=== PATIENT | male | born 1945 | race Caucasian/White ===

== ENCOUNTER 2019-07-27 08:13 | Outpatient (CLI) | payer MEDICARE, SELFPAY ==
[2019-07-27 09:05] LABS: Basophils Percent Auto 0.5 % (0.2-1.2); Eosinophils Absolute Auto 0.3 K/mm3 (0-0.3); Eosinophils Percent Auto 5.4 % (0-4.4); Hematocrit 42.6 % (42.0-52.0); Hemoglobin 14.3 g/dL (14.0-18.0); Immature Granulocyte Absolute 0.01 K/mm3 (0.00-0.031); Immature Granulocyte Percent A 0.2 % (0-0.5); Lymphocytes Absolute Auto 1.27 K/mm3 (0.9-3.2); Mean Corpuscular HGB Conc 33.6 g/dl (32-36); Mean Corpuscular Volume 92.2 fl (80-100); Mean Platelet Volume 10.9 fl (7.4-10.4); Monocytes Absolute Auto 0.6 K/mm3 (0.1-0.6); Monocytes Percent Auto 10.5 % (2.6-8.5); Neutrophils Absolute Auto 3.3 K/mm3 (1.3-6.7); Neutrophils Percent Auto 60.4 % (45.5-73.1); Platelet Count Result 154 k/mm3 (150-375); Red Blood Count 4.62 M/mm3 (4.6-6.20); Red Cell Distribution Width 12.5 % (11.5-14.5); White Blood Count 5.5 K/mm3 (4.5-10.0)
[2019-07-27 09:07] LABS: Cholesterol 212 mg/dL (0-200); HDL Direct 25 mg/dL; Triglycerides 288 mg/dL (<150)
[2019-07-27 09:20] LABS: LDL Cholesterol Direct 123 mg/dL
[2019-07-27 10:27] LABS: Folic Acid > 20.0 ng/mL (2.76->20)
== END 2019-07-27 08:14 | disposition home or self-care (01) ==
PROVIDERS: PCP Internal Medicine; Visit Provider Internal Medicine
DX: R53.83 Other fatigue (principal); E78.5 Hyperlipidemia, unspecified
CPT/HCPCS: 36415; 80061; 82607; 82746; 84443; 85025; 85027

== ENCOUNTER 2019-08-05 06:57 | Outpatient (CLI) | payer MEDICARE, SELFPAY ==
--- NOTE | ~2019-08-05 | NM_ITS ---
EXAMINATION: NM stress w perf spect multi DATE: 08/05/2019 09:42 INDICATION: Chest pain on exertion TECHNIQUE: Rest images were obtained following intravenous administration of 11.3 mCi Tc99m tetrofosm in ([employer]). The patient performed an exercise activity. At peak exercise, 33.7 mCi Tc99m tetrofosmi n ([employer]) was administered intravenously, and stress images were obtained. Data was reconstructed i nto short axis and horizontal and vertical long axis SPECT images. Gated SPECT images were also obtai dasha. COMPARISON: None. FINDINGS: There is normal left ventricular perfusion without definite evidence of reversible or fixed perfusion abnormality to suggest ischemia or infarction. There is normal left ventricular chamber size, wall motion and ejection fraction. Left ventricular ejection fraction measures >70%. IMPRESSION: 1. Normal myocardial perfusion at rest and during stress. 2. Left ventricular ejection fraction measuring >70%. Reviewed, dictated and finalized at location A.
--- NOTE | 2019-08-05 07:07 | EST_ITS ---
Patient Info Name: Pankaj Cornelius Age: 74 years : 1945 Gender: Male Ht: 70 in Wt: 188 lbs BSA: 2.07 m2 Exam Date: 08/05/2019 8:30 AM Exam Location: [facility] Stress Patient Status: Outpatient Admit Date: 08/05/2019 Staff Ordering Physician: Archie Ervin DO Attending Provider: Archie Ervin DO Exercise Technologist: Shraddha Doll RDCS Nurse: April Jacques, ANP, ACNP-BC Exam Type: CA stress test treadmill w NM Study Info Indications R07.9 - Chest pain, unspecified A pharmacological stress test was performed. Summary 1. Please correlate with nuclear medicine images, reported separately. 2. Normal ST segment response to stress. 3. Below average exercise capacity for age. 4. Patient had mild chest heaviness throughout the examination that did not worsen with exercise. He did have shortness breath with exertion also. Protocol: [facility] Stress ECG Details Stage: REST Duration (min): 6 min : 14 sec Speed (mph): 0.0 Grade (%): 0 HR (bpm): 58 SBP (mmHg): 135 DBP (mmHg): 71 METS: --- Stage: REST Duration (min): 21 min : 57 sec Speed (mph): 0.0 Grade (%): 0 HR (bpm): 64 SBP (mmHg): 135 DBP (mmHg): 71 METS: --- Stage: STAGE 1 Duration (min): 1 min : 0 sec Speed (mph): 1.7 Grade (%): 10 HR (bpm): 101 SBP (mmHg): 135 DBP (mmHg): 71 METS: --- Stage: STAGE 1 Duration (min): 2 min : 0 sec Speed (mph): 1.7 Grade (%): 10 HR (bpm): 108 SBP (mmHg): 135 DBP (mmHg): 71 METS: --- Stage: STAGE 1 Duration (min): 3 min : 0 sec Speed (mph): 1.7 Grade (%): 10 HR (bpm): 109 SBP (mmHg): 181 DBP (mmHg): 81 METS: --- Stage: STAGE 2 Duration (min): 1 min : 0 sec Speed (mph): 2.5 Grade (%): 12 HR (bpm): 131 SBP (mmHg): 181 DBP (mmHg): 81 METS: --- Stage: STAGE 2 Duration (min): 1 min : 26 sec Speed (mph): 2.5 Grade (%): 12 HR (bpm): 134 SBP (mmHg): 181 DBP (mmHg): 81 METS: --- Stage: RECOVERY Duration (min): 0 min : 33 sec Speed (mph): 0.0 Grade (%): 0 HR (bpm): 125 SBP (mmHg): 186 DBP (mmHg): 77 METS: --- Stage: RECOVERY Duration (min): 1 min : 33 sec Speed (mph): 0.0 Grade (%): 0 HR (bpm): 88 SBP (mmHg): 196 DBP (mmHg): 71 METS: --- Stage: RECOVERY Duration (min): 2 min : 33 sec Speed (mph): 0.0 Grade (%): 0 HR (bpm): 74 SBP (mmHg): 196 DBP (mmHg): 71 METS: --- Stage: RECOVERY Duration (min): 3 min : 33 sec Speed (mph): 0.0 Grade (%): 0 HR (bpm): 76 SBP (mmHg): 182 DBP (mmHg): 73 METS: --- Stage: RECOVERY Duration (min): 4 min : 33 sec Speed (mph): 0.0 Grade (%): 0 HR (bpm): 71 SBP (mmHg): 182 DBP (mmHg): 73 METS: --- Stage: RECOVERY Duration (min): 5 min : 33 sec Speed (mph): 0.0 Grade (%):
== END 2019-08-05 06:58 | disposition home or self-care (01) ==
LOC: ANHCARD 07:02
PROVIDERS: PCP Internal Medicine; Visit Provider Internal Medicine
DX: R07.9 Chest pain, unspecified (principal)
CPT/HCPCS: 78452; 93017; A9502

== ENCOUNTER 2019-09-21 00:16 | Outpatient (CLI) | payer MEDICARE, SELFPAY ==
[2019-09-22 14:41] LABS: SARS-CoV-2 RNA PCR Negative
== END 2019-09-21 00:17 | disposition home or self-care (01) ==
LOC: ANHCOVIDDT 00:17
PROVIDERS: PCP Internal Medicine; Visit Provider Internal Medicine Cardiovascular Disease
DX: Z01.812 Encounter for preprocedural laboratory examination (principal); Z11.59 Encounter for screening for other viral diseases
CPT/HCPCS: 87635; C9803; U0003

== ENCOUNTER 2019-09-23 05:38 | Day surgery (SDC) | payer MEDICARE, SELFPAY ==
[2019-09-22 15:58] VITALS: BMI 27.8
[2019-09-23] VITALS (19 sets, daily range): BP systolic 120–151; BP diastolic 62–86; PULSE 55–77; RESP 13–21; TEMP 36.6–36.7; O2SAT 93–97
[2019-09-23 10:36] LABS: Basophils Percent Auto 0.4 % (0.2-1.2); Eosinophils Absolute Auto 0.2 K/mm3 (0-0.3); Eosinophils Percent Auto 3.8 % (0-4.4); Hematocrit 43.8 % (42.0-52.0); Hemoglobin 14.8 g/dL (14.0-18.0); Immature Granulocyte Absolute 0.01 K/mm3 (0.00-0.031); Immature Granulocyte Percent A 0.2 % (0-0.5); Lymphocytes Absolute Auto 1.17 K/mm3 (0.9-3.2); Lymphocytes Percent Auto 20.9 % (18.3-44.2); Mean Corpuscular HGB Conc 33.8 g/dl (32-36); Mean Corpuscular Volume 91.6 fl (80-100); Monocytes Absolute Auto 0.4 K/mm3 (0.1-0.6); Monocytes Percent Auto 7.3 % (2.6-8.5); Neutrophils Absolute Auto 3.8 K/mm3 (1.3-6.7); Neutrophils Percent Auto 67.4 % (45.5-73.1); Platelet Count Result 160 k/mm3 (150-375); Red Blood Count 4.78 M/mm3 (4.6-6.20); Red Cell Distribution Width 12.5 % (11.5-14.5); White Blood Count 5.6 K/mm3 (4.5-10.0)
[2019-09-23 10:46] LABS: Anion Gap 10.6 mmol/L (7-16); Blood Urea Nitrogen 19 mg/dL (9-20); Calcium 9.5 mg/dL (8.4-10.2); Carbon Dioxide 28 mmol/L (22-30); Chloride 104 mmol/L (98-107); Estimated CRCL calculation 47 ml/min; Estimated Glomerular Filt Rate 59; Glucose 107 mg/dL (75-110); Potassium 4.6 mmol/L (3.4-5.0); Sodium 138 mmol/L (137-145)
[2019-09-23 10:50] LABS: INR 1.1; Prothrombin Time 13.5 Seconds (11.1-14.7)
[2019-09-23] MEDS: methylPREDNISolone SOD SUCC 125 MG VIAL 60 MG IV PUSH (11:18)
--- NOTE | 2019-09-23 11:31 | WPDHPUPDATE1 ---
History and Physical Update Update Date/Time: 09/23/19 11:31 History and Physical has been reviewed, including an updated exam of the patient. There are NO changes in the patient's condition. Risks, benefits, and alternatives have been discussed and questions answered. Patient agrees to proceed with procedure.
--- NOTE | 2019-09-23 11:31 | WPDMODSED ---
Moderate Sedation Note-Pt Data Patient Data Diagnosis: Unstable angina Present Complaint: none Procedure to be performed/Plan: left heart catheterization with selective left and right coronary angiography with left ventriculography and hemodynamics and possible percutaneous intervention and stent implantation Allergies Allergy/AdvReac Type Severity Reaction Status Date / Time Penicillins Allergy Mild Rash Verified 08/02/19 13:47 Shrimp Allergy Severe CHOKING Uncoded 08/02/19 13:47 FEELING IN THROAT NUTS Allergy Intermediate CHOKING Uncoded 08/02/19 13:47 FEELING IN THROAT Home Medications Medication Instructions Recorded Confirmed Type psyllium husk 3.4 gram/5.4 gram 1 tbsp PO DAILY 02/02/19 09/22/19 History oral powder aspirin 81 mg PO DAILY 09/22/19 09/22/19 History metoprolol tartrate 25 mg PO BID 09/22/19 09/22/19 History multivitamin 1 cap PO DAILY 09/22/19 09/22/19 History nitroglycerin [Nitrostat] 0.4 mg SUBLINGUAL Q5M PRN 09/22/19 09/22/19 History omeprazole 40 mg PO DAILY 09/22/19 09/22/19 History Current Medications: Active Medications Sodium Chloride (Normal Saline Iv) 500 mls @ 100 mls/hr IV CONT .Q5H SABINA Sedation/Anesthesia: No previous sedation/anesthesia problems (including family history). [facility] Family History Family History Sibling Patient's brother is in good health Patient's brother is Social History Social History Smoking status: Former smoker Tobacco type: cigarettes Second hand tobacco smoke exposure: Yes Smoking end date: 02/24/79 Alcohol intake: current Drinks per week: 1 Substance use: never Substance use type: does not use Last use: 1983 Living arrangements: with family Gender identity (if verbalized by the patient): Male Spiritual care concerns: No Mod Sed Physical Exam Physical Exam Pre Procedural Exam: Normal: Appearance, Eyes, Ears, Nose, Neck ( supple, normal range of motion), Throat ( posterior hypopharynx clear, nonerythematous), Airway ( normal anatomy, no obstruction), Lungs ( clear to auscultation bilaterally), Heart Size, Heart Rate, Heart Rhythm, Neuro Exam, Abdomen, Liver, Kidneys, Extremities and Skin Hours since solid foods: 12 Hours since liquid intake: 12 Internal Medicine - PN: Obj Da Vital Signs Vital Signs: Vital Signs - 24 hr 09/23/19 10:15 Temperature 36.6 C Pulse Rate 55 L Respiratory Rate 16 Blood Pressure 142/86 H Pulse Oximetry 97 Meds/Results Medications: Active Medications Generic Name Dose Route Start Last Admin Trade Name Freq PRN Reason Stop Dose Admin Sodium Chloride 500 mls @ 100 mls/hr 09/23/19 06:20 Normal Saline Iv IV CONT .Q5H SABINA Labs CBC & Chem 7: 09/23/19 10:15 09/23/19 10:15 Labs: Laboratory Results - last 24 hr 09/23/19 09/23/19 09/23/19 10:15 10:15 10:15 WBC 5.6 RBC 4.78 Hgb 14.8 Hct 43.8 MCV 91.6 MCH 31.0 MCHC 33.8 RDW 12.5 Plt Count 160 MPV 11.0 H Immature Gran % (Auto) 0.2 Neut % (Auto) 67.4 Lymph % (Auto) 20.9 Randall % (Auto) 7.3 Eos % (Auto) 3.8 Baso % (Auto) 0.4 Lymph # (Auto) 1.17 Randall # (Auto) 0.4 Eos # (Auto) 0.2 Baso # (Auto) 0.0 Abs Immat Gran (auto) 0.01 Absolute Neuts (auto) 3.8 Absolute Nucleated RBC 0.0 Nucleated RBC % 0.0 PT 13.5 INR 1.1 Sodium 138 Potassium 4.6 Chloride 104 Carbon Dioxide 28 Anion Gap 10.6 BUN 19 Creatinine 1.20 Estim Creat Clear Calc 47 Estimated GFR 59 Glucose 107 Calcium 9.5 ASA Classification/Sedation ASA Classification/Sedation ASA Class: III Emergent: No Risks: Risks, benefits and alternatives explained and patient/family accepted plan for sedation. Patient re-evaluated immediately prior to sedation.
--- NOTE | 2019-09-23 12:22 | PM.PROC ---
Procedure Note - Detailed Date of procedure: 09/23/19 Pre-op diagnosis: Chest pain with exertion, SOB, Fatigue Unstable angina Post-op diagnosis: other Procedure performed: Left heart catheterization with selective left and right coronary angiography with left ventriculography and hemodynamics and distal aortogram Description of procedure: BRIEF HISTORY OF PRESENT ILLNESS: Patient is a pleasant 74 yo WM with a past medical history of dyslipidemia and h/o tobacco abuse who presented with classic exertional anginal symptoms with chest pressure, fatigue, KHOURY, decreased activity tolerance who underwent TM nuclear stress test with normal LV function and no ischemia but with poor exercise tolerance on treadmill and stress related angina on treadmill referred for coronary angiogram to delineate his coronary anatomy. PROCEDURES PERFORMED: 1. Left heart catheterization 2. Selective left and right coronary angiography 3. Left ventriculography and hemodynamics 4. Moderate/conscious sedation administration 5. Distal aorta angiography CATHETERS UTILIZED: Left coronary system- 5 Nicaraguan JL4 catheter Right coronary system- 5 Nicaraguan JR4 catheter Left ventriculography and hemodynamics- 5 Nicaraguan angled pigtail catheter PROCEDURE IN DETAIL: After verbal and written informed consent was obtained the patient, risks, benefits, and alternatives explained in detail the patient agreed to proceed with the plan of care as outlined above. The patient was subsequently brought to the cardiac catheterization lab, placed on the cardiac catheterization table, and prepped and draped in the usual sterile fashion. Utilizing approximately 17cc of 1% subcutaneous Lidocaine, the right groin was then locally anesthetized. Utilizing the modified Seldinger technique, a 5 Nicaraguan arterial vascular access sheath was inserted in the right common femoral artery easily and without complications. upon advancement of the 0.035 J-tipped guidewire some initial resistance was met. At this point, no further attempts were made to advance until angiography was performed distal to the resistance point. This revealed patency of the R proximal common iliac artery but with a centrally located, eccentric calcified stenosis estimated at approximately 30-40%. As such, using a 260cm Wholey wire this was able to easily pass the stenosis and advance over the wire angiographic catheters. LAter, all catheter exchanges were performed over a 260cm 0.035 J-tipped exchange guidewire. Subsequently, through this access, coronary angiography was subsequently obtained in multiple standard re-projections. Following this, a 5 Nicaraguan angled pigtail catheter was advanced retrograde across aortic valve into the cavity of the left ventricle. Left ventriculography was performed and pullback across aortic valve was subsequently recorded. The vascular access sheath and angiographic catheters were flushed before and after catheter exchanges. after coronary angiography was completed, using the 5 Nicaraguan angled pigtail catheter positioned in the distal aorta, cineangiography was performed and recorded. At the conclusion of the diagnostic portion of the procedure, all angiographic guidewires and catheters were removed and the 5 Nicaraguan arterial vascular access sheath was then pulled and satisfactory hemostasis was achieved using manual compression. There no complications noted at the conclusion of the diagnostic portion of the study. MODERATE SEDATION/ANESTHESIA ADMINISTRATION: Patient reports no prior problems with sedation/anesthesia. Please see pre-sedation noted for physical examination documentation. Sedation start time was 1138 and end time was 1209 for a total intra-service/procedure face-face time of 31 minutes. A total of 1 mg intravenous Versed and a total of 50 mcg intravenous Fentanyl, and 50 mg intravenous Benadry lwas administered for moderate sedation. Moderate sedation was administered by qualified/certified observer Chester Pleitez
== END 2019-09-23 17:52 | disposition home or self-care (01) ==
PROVIDERS: PCP Internal Medicine; Visit Provider Internal Medicine Cardiovascular Disease
PROC: 4A023N7 Measurement of Cardiac Sampling and Pressure, Left Heart, Percutaneous Approach (ICD-10-PCS; CPT 93452; principal; 2019-09-23 11:00)
DX: I25.10 Atherosclerotic heart disease of native coronary artery without angina pectoris (principal); R07.89 Other chest pain; R06.02 Shortness of breath; R53.83 Other fatigue; I71.4 Abdominal aortic aneurysm, without rupture; I77.89 Other specified disorders of arteries and arterioles; E78.5 Hyperlipidemia, unspecified; Z87.891 Personal history of nicotine dependence; Z79.82 Long term (current) use of aspirin
CPT/HCPCS: 36415; 80048; 85025; 85610; 87635; 93458; C1769; C1887; C1894; C9803; J0461; J1200; J1644; J2250; J2930; J3010; J7040; U0003

== ENCOUNTER 2019-10-01 13:01 | Outpatient (CLI) | payer MEDICARE, SELFPAY ==
--- NOTE | ~2019-10-01 | CT_ITS ---
EXAMINATION: CTA abd aorta runoff EXAM DATE: 10/01/2019 13:36 INDICATION: Saccular right common iliac aneurysm. TECHNIQUE: Spiral CTA abd aorta runoff was performed following intravenous injection of 150 mL Omnipa que 350. Axial, coronal and sagittal images were reviewed. Maximum intensity projection 3-D reconstr uctions of the arteries were created by the technologist on dedicated workstation. The dose-length product (DLP) for this examination was 1124.91 mGy-cm. The exposure was tailored according to patie nt size (auto mA exposure control), and iterative reconstruction (ASIR) was used as additional dose r eduction technique. There is no prior study for comparison. FINDINGS: Moderate scattered aortic arterial sclerosis. Distal abdominal aorta is mildly dilated at 2.7 cm. Just below the KRISTEN takeoff there is dissection flap abdominal aorta. Stenosis at the origin o f the right common iliac artery, best measuring about 4.5 mm in diameter at most stenotic region. Dis marvin to the stenotic segment the diameter of this vessel was 13 mm, slightly larger than the contralat eral side. There is no stenosis of femoral, popliteal arteries bilaterally, and there is three-vessel runoff to the ankle bilaterally. Incidental right-sided Higgins's cyst. The liver, spleen, adrenal glands and pancreas are unremarkable. Gallbladder is unremarkable. No bi liary obstruction. Portal and splenic veins are patent. Kidneys enhance symmetrically. There is no hydronephrosis. The prostate is unremarkable. The bladder is unremarkable. There is no retroperi toneal or pelvic lymphadenopathy. Small bilateral inguinal fat-containing hernias. The appendix is normal. The stomach and small bowel are unremarkable. There is expected amount of c olonic stool. There is moderate sigmoid predominant colonic diverticulosis. There is no adjacent inf lammatory change to suggest diverticulitis. No free intraperitoneal gas. The heart is normal in si ze. There are no pericardial or pleural effusions. The lung bases are unremarkable. There are no o steoblastic or osteolytic lesions identified. IMPRESSION: 1. Mildly dilated distal abdominal aorta with short flap dissection in this dilated segment. 2. Moderate stenosis right common iliac artery origin. 3. Three-vessel runoff to both legs. 4. Sigmoid predominant diverticulosis. 5. Small inguinal fat-containing hernias. 6. Right Higgins's cyst. Reviewed, dictated and finalized at location A. IMPRESSION: 1. Mildly dilated distal abdominal aorta with short flap dissection in this di lated segment. 2. Moderate stenosis right common iliac artery origin. 3. Three-vessel runoff to both legs. 4. Sigmoid predominant diverticulosis. 5. Small inguinal fat-containing hernias. 6. Right Higgins's cyst.
== END 2019-10-01 13:02 | disposition home or self-care (01) ==
PROVIDERS: PCP Internal Medicine; Visit Provider Internal Medicine Cardiovascular Disease
DX: I72.3 Aneurysm of iliac artery (principal); M71.21 Synovial cyst of popliteal space [Baker], right knee; K40.90 Unilateral inguinal hernia, without obstruction or gangrene, not specified as recurrent; K57.30 Diverticulosis of large intestine without perforation or abscess without bleeding
CPT/HCPCS: 75635; Q9967

== ENCOUNTER 2019-11-06 07:21 | Outpatient (CLI) | payer MEDICARE, SELFPAY ==
[2019-11-06 08:00] LABS: Alanine Aminotransferase 32 U/L (4-50); Albumin Level 4.3 g/dL (3.5-5.1); Alkaline Phosphatase 92 U/L (38-126); Anion Gap 7 mmol/L (8-16); Aspartate Amino Transferase 39 U/L (17-59); Bilirubin,Total 0.6 mg/dL (0.2-1.3); Blood Urea Nitrogen 17 mg/dL (9-20); Calcium 9.4 mg/dL (8.4-10.2); Carbon Dioxide 29 mmol/L (22-30); Chloride 103 mmol/L (98-107); Estimated Glomerular Filt Rate > 60; Glucose 107 mg/dL (75-110); Potassium 4.2 mmol/L (3.4-5.0); Sodium 139 mmol/L (137-145)
[2019-11-06 08:31] LABS: Prostate Specific Antigen 0.7 ng/mL (< OR = 4.0)
[2019-11-06 09:07] LABS: Folic Acid > 20.0 ng/mL (2.76->20)
== END 2019-11-06 07:22 | disposition home or self-care (01) ==
LOC: ANHLAB 07:24
PROVIDERS: PCP Internal Medicine; Visit Provider Internal Medicine
DX: R53.83 Other fatigue (principal); Z12.5 Encounter for screening for malignant neoplasm of prostate; R73.9 Hyperglycemia, unspecified
CPT/HCPCS: 36415; 80053; 82607; 82746; 84153; 84443; G0103

== ENCOUNTER 2020-01-17 08:38 | Outpatient (CLI) | payer MEDICARE, SELFPAY ==
--- NOTE | ~2020-01-17 | CT_ITS ---
EXAMINATION: CTA abdomen pelvis EXAM DATE: 01/17/2020 09:15 INDICATION: Dissection of aorta. TECHNIQUE: Spiral CT angiogram of the abdomen and pelvis was performed following intravenous injectio n of 100 mL Omnipaque 350. Axial, coronal and sagittal images were reviewed. Maximum intensity proje ction 3-D reconstructions of the abdominal aorta were created by the technologist on dedicated workst ation. The dose-length product (DLP) for this examination was 785.09 mGy-cm. The exposure was tailo red according to patient size (auto mA exposure control), and iterative reconstruction (ASIR) was use d as additional dose reduction technique. Comparison is made to prior examination from 10/01/2019. FINDINGS: Again there is short segment lower abdominal aortic dissection in its distal aspect extendi ng into the right common iliac artery. The lumen of the right common iliac artery at the bifurcation is 5 mm in diameter versus the normal-size contralateral side of 10 mm. There is a left liver lobe 1.8 cm cyst. The liver, spleen, adrenal glands and pancreas are otherwise unremarkable. Gallbladder is unremarkable. No biliary obstruction. Portal and splenic veins are pa tent. Kidneys enhance symmetrically. There is no hydronephrosis. There is a 2 cm exophytic left sayra al cyst. The prostate is unremarkable. The bladder is unremarkable. There is no retroperitoneal or pelvic lymphadenopathy. There is moderate scattered arteriosclerotic disease. The appendix is normal. The stomach and small bowel are unremarkable. There is moderate to severe si gmoid colonic diverticulosis. There is no adjacent inflammatory change to suggest diverticulitis. N o free intraperitoneal gas. The heart is normal in size. There are no pericardial or pleural effus ions. The lung bases are unremarkable. There are no osteoblastic or osteolytic lesions identified. IMPRESSION: 1. Stable short segment distal abdominal aortic, right common iliac arterial dissection. 2. Sigmoid diverticulosis. Reviewed, dictated and finalized at location B. [employer]AT[employer] IMPRESSION: 1. Stable short segment distal abdominal aortic, right common iliac arterial d issection. 2. Sigmoid diverticulosis.
[2020-01-17 09:10] LABS: Estimated Glomerular Filt Rate > 60
== END 2020-01-17 08:39 | disposition home or self-care (01) ==
PROVIDERS: PCP Internal Medicine
DX: I71.00 Dissection of unspecified site of aorta (principal); I77.1 Stricture of artery; K57.30 Diverticulosis of large intestine without perforation or abscess without bleeding
CPT/HCPCS: 74174; Q9967

== ENCOUNTER 2020-05-30 14:41 | Outpatient (CLI) | payer MEDICARE, SELFPAY ==
--- NOTE | ~2020-05-30 | XR_ITS ---
EXAMINATION: XR thoracic spine 2V DATE: 05/30/2020 14:58 INDICATION: Cervicalgia and upper back pain TECHNIQUE: Two views of the thoracic spine are obtained. COMPARISON: 06/05/2018 FINDINGS: There is no fracture, dislocation, or subluxation. The vertebral body heights are maintaine d. There is mild loss of intervertebral disc space height in the upper thoracic spine. IMPRESSION: 1. Mild thoracic spondylosis without acute findings. Reviewed, dictated and finalized at location A.
--- NOTE | ~2020-05-30 | XR_ITS ---
EXAMINATION: XR_CERV2-3V_CR EXAM DATE: 05/30/2020 14:59 INDICATION: Neck pain, no known recent injury. TECHNIQUE: Cervical spine frontal, lateral and open-mouth odontoid projections. There is no prior s tudy for comparison. FINDINGS: There is moderate disc disease C5-6 and 6-7, mild to moderate at C3-4 and mild at C2-3. Th e vertebral bodies are aligned in the AP dimension. The odontoid process is intact. The lateral mass es of C1 line up with C2. There are no acute fractures identified. Paraspinal soft tissue is unrema rkable. Overall moderate cervical arthropathy. Lung apices unremarkable. IMPRESSION: Moderate cervical spondylosis. Reviewed, dictated and finalized at location A.
== END 2020-05-30 14:42 | disposition home or self-care (01) ==
LOC: ANHIMG 14:44
PROVIDERS: PCP Internal Medicine; Visit Provider Internal Medicine
DX: M47.813 Spondylosis without myelopathy or radiculopathy, cervicothoracic region (principal)
CPT/HCPCS: 72040; 72070

== ENCOUNTER 2020-08-24 08:24 | Outpatient (CLI) | payer MEDICARE, SELFPAY ==
[2020-08-24 08:50] LABS: Basophils Percent Auto 0.4 % (0.2-1.2); Eosinophils Absolute Auto 0.2 K/mm3 (0-0.3); Eosinophils Percent Auto 3.4 % (0-4.4); Hematocrit 43.1 % (42.0-52.0); Hemoglobin 14.3 g/dL (14.0-18.0); Immature Granulocyte Absolute 0.01 K/mm3 (0.00-0.031); Immature Granulocyte Percent A 0.2 % (0-0.5); Lymphocytes Absolute Auto 1.03 K/mm3 (0.9-3.2); Lymphocytes Percent Auto 19.5 % (18.3-44.2); Mean Corpuscular HGB Conc 33.2 g/dl (32-36); Mean Corpuscular Hemoglobin 30.6 pg (26-34); Mean Corpuscular Volume 92.1 fl (80-100); Mean Platelet Volume 10.6 fl (7.4-10.4); Monocytes Absolute Auto 0.5 K/mm3 (0.1-0.6); Monocytes Percent Auto 9.1 % (2.6-8.5); Neutrophils Absolute Auto 3.6 K/mm3 (1.3-6.7); Neutrophils Percent Auto 67.4 % (45.5-73.1); Platelet Count Result 128 k/mm3 (150-375); Red Blood Count 4.68 M/mm3 (4.6-6.20); Red Cell Distribution Width 12.6 % (11.5-14.5); White Blood Count 5.3 K/mm3 (4.5-10.0)
[2020-08-24 09:30] LABS: Hemoglobin A1C 5.9 % (<5.7)
[2020-08-24 09:31] LABS: Alanine Aminotransferase 22 U/L (4-50); Albumin Level 4.5 g/dL (3.5-5.1); Alkaline Phosphatase 80 U/L (38-126); Anion Gap 9 mmol/L (8-16); Aspartate Amino Transferase 36 U/L (17-59); Bilirubin,Total 0.9 mg/dL (0.2-1.3); Blood Urea Nitrogen 18 mg/dL (9-20); Carbon Dioxide 28 mmol/L (22-30); Chloride 105 mmol/L (98-107); Cholesterol 144 mg/dL (0-200); Estimated Glomerular Filt Rate 59; Glucose 103 mg/dL (75-110); HDL Direct 36 mg/dL; Potassium 4.2 mmol/L (3.4-5.0); Sodium 142 mmol/L (137-145); Triglycerides 170 mg/dL (<150)
[2020-08-24 09:42] LABS: LDL Cholesterol Direct 65 mg/dL
[2020-08-24 10:37] LABS: Folic Acid 15.1 ng/mL (2.76->20)
== END 2020-08-24 08:25 | disposition home or self-care (01) ==
LOC: ANHLAB 08:29
PROVIDERS: PCP Internal Medicine; Visit Provider Internal Medicine
DX: R53.83 Other fatigue (principal); R73.9 Hyperglycemia, unspecified; E78.5 Hyperlipidemia, unspecified
CPT/HCPCS: 36415; 80053; 80061; 82607; 82746; 83036; 84443; 85025; 85055

== ENCOUNTER → 2020-10-26 05:04 | Outpatient (CLI) | payer MEDICARE, SELFPAY ==
[2020-10-26 19:19] LABS: SARS-CoV-2 RNA PCR Positive
== END ==
PROVIDERS: PCP Internal Medicine; Visit Provider Internal Medicine
DX: U07.1 COVID-19 (principal)
CPT/HCPCS: C9803; U0003; U0005

== ENCOUNTER 2021-06-19 07:34 | Outpatient (CLI) | payer MEDICARE, SELFPAY ==
[2021-06-19 08:08] LABS: Basophils Percent Auto 0.6 % (0.2-1.2); Eosinophils Absolute Auto 0.3 K/mm3 (0-0.3); Eosinophils Percent Auto 5.6 % (0-4.4); Hematocrit 40.4 % (42.0-52.0); Hemoglobin 13.8 g/dL (14.0-18.0); Immature Granulocyte Absolute 0.01 K/mm3 (0.00-0.031); Immature Granulocyte Percent A 0.2 % (0-0.5); Immature Platelet Fraction Pct 4.1 % (0.9-11.2); Lymphocytes Absolute Auto 1.41 K/mm3 (0.9-3.2); Lymphocytes Percent Auto 27.2 % (18.3-44.2); Mean Corpuscular HGB Conc 34.2 g/dl (32-36); Mean Corpuscular Hemoglobin 31.7 pg (26-34); Mean Corpuscular Volume 92.7 fl (80-100); Mean Platelet Volume 10.6 fl (7.4-10.4); Monocytes Absolute Auto 0.5 K/mm3 (0.1-0.6); Neutrophils Absolute Auto 2.9 K/mm3 (1.3-6.7); Neutrophils Percent Auto 56.4 % (45.5-73.1); Platelet Count Result 126 k/mm3 (150-375); Red Blood Count 4.36 M/mm3 (4.6-6.20); Red Cell Distribution Width 12.9 % (11.5-14.5); White Blood Count 5.2 K/mm3 (4.5-10.0)
[2021-06-19 08:14] LABS: Alanine Aminotransferase 22 U/L (4-50); Albumin Level 4.5 g/dL (3.5-5.1); Alkaline Phosphatase 92 U/L (38-126); Anion Gap 6 mmol/L (8-16); Aspartate Amino Transferase 38 U/L (17-59); Bilirubin,Total 0.5 mg/dL (0.2-1.3); Blood Urea Nitrogen 19 mg/dL (9-20); Calcium 9.2 mg/dL (8.4-10.2); Carbon Dioxide 29 mmol/L (22-30); Chloride 106 mmol/L (98-107); Cholesterol 133 mg/dL (0-200); Estimated Glomerular Filt Rate 53; Glucose 111 mg/dL (65-110); HDL Direct 34 mg/dL; Potassium 4.2 mmol/L (3.4-5.0); Sodium 141 mmol/L (137-145); Triglycerides 154 mg/dL (<150)
[2021-06-19 08:22] LABS: Hemoglobin A1C 5.6 % (<5.7)
[2021-06-19 08:25] LABS: LDL Cholesterol Direct 64 mg/dL
[2021-06-19 08:45] LABS: Prostate Specific Antigen 0.7 ng/mL (< OR = 4.0)
== END 2021-06-19 07:35 | disposition home or self-care (01) ==
LOC: ANHLAB 07:37
PROVIDERS: PCP Internal Medicine; Visit Provider Internal Medicine
DX: E78.5 Hyperlipidemia, unspecified (principal); R53.83 Other fatigue; R73.9 Hyperglycemia, unspecified; Z12.5 Encounter for screening for malignant neoplasm of prostate
CPT/HCPCS: 36415; 80053; 80061; 82607; 82746; 83036; 84153; 84443; 85025; 85055; G0103

== ENCOUNTER 2021-12-10 07:45 | Outpatient (CLI) | payer MEDICARE, SELFPAY ==
[2021-12-10 08:25] LABS: Basophils Percent Auto 0.6 % (0.2-1.2); Eosinophils Absolute Auto 0.3 K/mm3 (0-0.3); Eosinophils Percent Auto 4.8 % (0-4.4); Hematocrit 43.8 % (42.0-52.0); Hemoglobin 14.7 g/dL (14.0-18.0); Immature Granulocyte Absolute 0.01 K/mm3 (0.00-0.031); Immature Granulocyte Percent A 0.2 % (0-0.5); Immature Platelet Fraction Pct 5.1 % (0.9-11.2); Lymphocytes Absolute Auto 1.18 K/mm3 (0.9-3.2); Lymphocytes Percent Auto 22.9 % (18.3-44.2); Mean Corpuscular HGB Conc 33.6 g/dl (32-36); Mean Corpuscular Hemoglobin 31.4 pg (26-34); Mean Corpuscular Volume 93.6 fl (80-100); Mean Platelet Volume 10.5 fl (7.4-10.4); Monocytes Absolute Auto 0.4 K/mm3 (0.1-0.6); Monocytes Percent Auto 7.9 % (2.6-8.5); Neutrophils Absolute Auto 3.3 K/mm3 (1.3-6.7); Neutrophils Percent Auto 63.6 % (45.5-73.1); Platelet Count Result 136 k/mm3 (150-375); Red Blood Count 4.68 M/mm3 (4.6-6.20); Red Cell Distribution Width 12.8 % (11.5-14.5); White Blood Count 5.2 K/mm3 (4.5-10.0)
[2021-12-10 08:36] LABS: Alanine Aminotransferase 30 U/L (6-50); Albumin Level 4.6 g/dL (3.5-5.1); Alkaline Phosphatase 90 U/L (38-126); Anion Gap 6 mmol/L (8-16); Aspartate Amino Transferase 40 U/L (17-59); Bilirubin,Total 0.9 mg/dL (0.2-1.3); Blood Urea Nitrogen 17 mg/dL (9-20); Calcium 9.6 mg/dL (8.4-10.2); Carbon Dioxide 29 mmol/L (22-30); Chloride 104 mmol/L (98-107); Estimated Glomerular Filt Rate 53; Glucose 107 mg/dL (65-110); Potassium 4.1 mmol/L (3.4-5.0); Sodium 139 mmol/L (137-145)
[2021-12-10 08:58] LABS: Iron 104 ug/dL (49-181)
[2021-12-10 09:10] LABS: Percent Iron Saturation 32 % (20-50)
[2021-12-10 09:42] LABS: Folic Acid 11.2 ng/mL (2.76->20)
== END 2021-12-10 07:46 | disposition home or self-care (01) ==
PROVIDERS: PCP Internal Medicine; Visit Provider Internal Medicine
DX: D64.9 Anemia, unspecified (principal); R73.9 Hyperglycemia, unspecified
CPT/HCPCS: 36415; 80053; 82607; 82746; 83036; 83540; 83550; 85025; 85055

== ENCOUNTER 2022-06-20 07:52 | Outpatient (CLI) | payer MEDICARE, SELFPAY ==
[2022-06-20 08:24] LABS: Basophils Percent Auto 0.4 % (0.2-1.2); Eosinophils Absolute Auto 0.2 K/mm3 (0-0.3); Hematocrit 42.9 % (42.0-52.0); Hemoglobin 14.1 g/dL (14.0-18.0); Immature Granulocyte Absolute 0.01 K/mm3 (0.00-0.031); Immature Granulocyte Percent A 0.2 % (0-0.5); Immature Platelet Fraction Pct 5.3 % (0.9-11.2); Lymphocytes Absolute Auto 0.98 K/mm3 (0.9-3.2); Lymphocytes Percent Auto 21.9 % (18.3-44.2); Mean Corpuscular HGB Conc 32.9 g/dl (32-36); Mean Corpuscular Hemoglobin 30.7 pg (26-34); Mean Corpuscular Volume 93.5 fl (80-100); Mean Platelet Volume 10.6 fl (7.4-10.4); Monocytes Absolute Auto 0.4 K/mm3 (0.1-0.6); Monocytes Percent Auto 9.8 % (2.6-8.5); Neutrophils Absolute Auto 2.9 K/mm3 (1.3-6.7); Neutrophils Percent Auto 63.7 % (45.5-73.1); Platelet Count Result 125 k/mm3 (150-375); Red Blood Count 4.59 M/mm3 (4.6-6.20); Red Cell Distribution Width 12.8 % (11.5-14.5); White Blood Count 4.5 K/mm3 (4.5-10.0)
[2022-06-20 08:35] LABS: Alanine Aminotransferase 32 U/L (6-50); Albumin Level 4.6 g/dL (3.5-5.1); Alkaline Phosphatase 94 U/L (38-126); Anion Gap 5 mmol/L (8-16); Aspartate Amino Transferase 40 U/L (17-59); Bilirubin,Total 0.8 mg/dL (0.2-1.3); Blood Urea Nitrogen 16 mg/dL (9-20); Calcium 9.5 mg/dL (8.4-10.2); Carbon Dioxide 32 mmol/L (22-30); Chloride 104 mmol/L (98-107); Cholesterol 123 mg/dL (0-200); Estimated Glomerular Filt Rate > 60; Glucose 105 mg/dL (65-110); HDL Direct 34 mg/dL; Lactate Dehydrogenase 204 U/L (120-246); Potassium 4.9 mmol/L (3.4-5.0); Sodium 141 mmol/L (137-145); Triglycerides 125 mg/dL (<150)
[2022-06-20 08:46] LABS: LDL Cholesterol Direct 67 mg/dL
[2022-06-20 09:05] LABS: Prostate Specific Antigen 0.9 ng/mL (< OR = 4.0)
== END 2022-06-20 07:53 | disposition home or self-care (01) ==
PROVIDERS: PCP Internal Medicine; Visit Provider Internal Medicine
DX: D69.6 Thrombocytopenia, unspecified (principal); E78.5 Hyperlipidemia, unspecified; R53.83 Other fatigue; R73.9 Hyperglycemia, unspecified; Z12.5 Encounter for screening for malignant neoplasm of prostate
CPT/HCPCS: 36415; 80053; 80061; 82607; 82746; 83615; 84153; 84443; 85025; 85055; G0103

== ENCOUNTER 2023-05-29 07:50 | Outpatient (CLI) | payer MEDICARE, SELFPAY ==
[2023-05-29 08:52] LABS: Basophils Percent Auto 0.4 % (0.2-1.2); Eosinophils Absolute Auto 0.2 K/mm3 (0-0.3); Eosinophils Percent Auto 3.6 % (0-4.4); Hematocrit 43.6 % (42.0-52.0); Hemoglobin 14.6 g/dL (14.0-18.0); Immature Granulocyte Absolute 0.01 K/mm3 (0.00-0.031); Immature Granulocyte Percent A 0.2 % (0-0.5); Immature Platelet Fraction Pct 4.5 % (0.9-11.2); Lymphocytes Absolute Auto 1.22 K/mm3 (0.9-3.2); Lymphocytes Percent Auto 23.1 % (18.3-44.2); Mean Corpuscular HGB Conc 33.5 g/dl (32-36); Mean Corpuscular Volume 92.6 fl (80-100); Mean Platelet Volume 10.8 fl (7.4-10.4); Monocytes Absolute Auto 0.5 K/mm3 (0.1-0.6); Monocytes Percent Auto 9.5 % (2.6-8.5); Neutrophils Absolute Auto 3.3 K/mm3 (1.3-6.7); Neutrophils Percent Auto 63.2 % (45.5-73.1); Platelet Count Result 134 k/mm3 (150-375); Red Blood Count 4.71 M/mm3 (4.6-6.20); Red Cell Distribution Width 12.4 % (11.5-14.5); White Blood Count 5.3 K/mm3 (4.5-10.0)
[2023-05-29 09:00] LABS: Alanine Aminotransferase 29 U/L (6-50); Albumin Level 4.3 g/dL (3.5-5.1); Alkaline Phosphatase 81 U/L (38-126); Anion Gap 3 mmol/L (4-12); Aspartate Amino Transferase 39 U/L (17-59); Bilirubin,Total 0.9 mg/dL (0.2-1.3); Blood Urea Nitrogen 19 mg/dL (9-20); Calcium 9.9 mg/dL (8.4-10.2); Carbon Dioxide 31 mmol/L (22-30); Chloride 105 mmol/L (98-107); Cholesterol 135 mg/dL (0-200); Estimated Glomerular Filt Rate 58; Glucose 110 mg/dL (65-110); HDL Direct 30 mg/dL; Potassium 4.6 mmol/L (3.4-5.0); Sodium 139 mmol/L (137-145); Triglycerides 224 mg/dL (<150)
[2023-05-29 09:11] LABS: LDL Cholesterol Direct 75 mg/dL
[2023-05-29 23:36] LABS: Hemoglobin A1C 5.8 % (<5.7)
== END 2023-05-29 07:51 | disposition home or self-care (01) ==
PROVIDERS: PCP Internal Medicine; Visit Provider Internal Medicine
DX: D69.6 Thrombocytopenia, unspecified (principal); R73.9 Hyperglycemia, unspecified; E78.5 Hyperlipidemia, unspecified; R53.83 Other fatigue
CPT/HCPCS: 36415; 80053; 80061; 83036; 85025; 85055

== ENCOUNTER 2023-10-12 11:40 | Emergency (ER) | payer MEDICARE, SELFPAY ==
[2023-10-12] VITALS (15 sets, daily range): BP systolic 112–136; BP diastolic 65–88; PULSE 67–82; RESP 13–26; TEMP 36.6; O2SAT 95–98
--- NOTE | ~2023-10-12 | XR_ITS ---
EXAMINATION: XR chest 2V DATE: 10/12/2023 12:27 INDICATION: Syncopal episode TECHNIQUE: frontal and lateral views of the chest were obtained. COMPARISON: Chest radiograph dated 06/05/18 FINDINGS: The lungs remain clear with no focal airspace opacities, pulmonary edema, pleural effusion or pneumot horax. The cardiomediastinal silhouette is normal. Visualized bones and soft tissues are unremarkable . IMPRESSION: 1. No acute cardiopulmonary disease. Reviewed, dictated and finalized at location A.
--- NOTE | 2023-10-12 11:45 | ECG_ITS ---
Test Date: 2023-10-12 11:47:48 Measurements Intervals [place] Rate: 66 P: 31 OH: 236 QRS: 27 QRSD: 87 T: 31 QT: 383 QTc: 402 Interpretive Statements SINUS RHYTHM WITH FIRST DEGREE AV BLOCK ABNORMAL ECG No previous ECG available for comparison Electronically Signed On 10-13-2023 10:51:41 CDT by Cleveland Badillo M.D.
--- NOTE | 2023-10-12 12:00 | ED.DIZZY ---
HPI - Dizziness General Chief Complaint: Syncope Stated Complaint: syncopal History of Present Illness HPI Narrative: 78-year-old male presenting to the emergency department for evaluation after having a syncopal episode in charge. Patient states since he has had body aches chills fever cough congestion. Patient states his has been out of town and he has not been eating and drinking well. Patient states he thought he felt well enough to go to [facility] but while at [facility] he began to feel lightheaded and dizzy. Patient told 1 of the other [facility] Goers he was going to pass out and the next thing or patient remembers was that he woke up while lying on the charge bench. The granulizing machine operator was present in the emergency department and states that the patient was unconscious for about 30 seconds. Related Data Home Medications Medication Instructions Recorded Confirmed psyllium husk 3.4 gram/5.4 gram 1 tbsp PO DAILY 02/02/19 12/28/21 oral powder (Metamucil) nitroglycerin 0.4 mg sublingual 0.4 mg sublingual Q5M PRN Chest 09/22/19 12/28/21 tablet (Nitrostat) Pain omeprazole 40 mg capsule,delayed 40 mg PO DAILY 09/22/19 12/28/21 release clopidogrel 75 mg tablet (Plavix) 75 mg PO DAILY 09/01/20 12/28/21 metoprolol tartrate 25 mg tablet 25 mg PO DAILY 06/22/21 12/28/21 Allergies Allergy/AdvReac Type Severity Reaction Status Date / Time nut - unspecified Allergy Severe Swelling Verified 06/18/23 08:06 of Lip/Tongue/Throat shrimp Allergy Severe Swelling Verified 06/18/23 08:06 of Lip/Tongue/Throat Penicillins Allergy Mild Rash Verified 06/18/23 08:06 Review of Systems Review of Systems: All systems reviewed & are unremarkable except as noted in HPI and below PMFSH Past Medical History Medical History Asthma Dislocated shoulder Stroke Vertigo Family History Family History Sibling Patient's brother is in good health Patient's brother is Social History Social History Smoking packs per day: 1 Smoking cigarettes per day: 20.0 Years smoked: 22 Smoking pack-years: 22.00 Smoking status: Former smoker Tobacco type: cigarettes Second hand tobacco smoke exposure: Yes Smoking end date: 02/24/79 Alcohol intake: current Drinks per week: 1 Substance use: never Substance use type: does not use Last use: 1983 Lack of Transportation: No Lack of Food: Never True Current Housing: I Have Housing Concerned About Future Housing: No Difficulty Paying Gas/Electric Bills: No Difficulty Paying for Meds: No Currently Unemployed: No Education: Master's Degree or Higher Difficulty w/ Childcare or Family Care: No Living arrangements: with family Gender identity (if verbalized by the patient): Male Spiritual care concerns: No Exam Narrative: APPEARANCE: Well appearing, no pain, no distress, well-nourished. HEAD: normocephalic, atraumatic. EYES: PERRLA/EOMI, conjunctivae clear. NOSE: Normal no drainage EARS:TMS clear with good light reflex. THROAT: Pharynx clear, no exudate. NECK: Supple. No adenopathy, no masses. RESPIRATORY: Airway patent, respirations nonlabored. Clear to auscultation bilaterally, no rales, rhonchi, wheezing. CARDIOVASCULAR: Regular rate and rhythm without murmurs rubs or gallops. ABDOMINAL: Soft, nontender, nondistended, normal bowel sounds MUSCULOSKELETAL: Moves all extremities. Strength/ROM intact, No edema, No calf tenderness. NEURO: Alert. Cranial nerves II through XII intact. SKIN: Warm, dry. Normal Color Course Course Emergency Course: Patient did feel improved with treatment and preferred to be discharged home. Vital Signs Vital signs: Vital Signs Temperature 97.8 F 10/12/23 11:42 Pulse Rate 68 10/12/23 11:42 Respiratory Rate 13 0
[2023-10-12] MEDS: SODIUM CHLORIDE 0.9% IV 1,000 ML 999 ML IV CONT (12:13)
[2023-10-12 12:15] LABS: Basophils Percent Auto 0.1 % (0.2-1.2); Eosinophils Absolute Auto 0.1 K/mm3 (0-0.3); Eosinophils Percent Auto 1.2 % (0-4.4); Hemoglobin 13.4 g/dL (14.0-18.0); Immature Granulocyte Absolute 0.03 K/mm3 (0.00-0.031); Immature Granulocyte Percent A 0.4 % (0-0.5); Immature Platelet Fraction Pct 3.2 % (0.9-11.2); Lymphocytes Absolute Auto 0.63 K/mm3 (0.9-3.2); Lymphocytes Percent Auto 8.3 % (18.3-44.2); Mean Corpuscular HGB Conc 34.4 g/dl (32-36); Mean Corpuscular Hemoglobin 31.5 pg (26-34); Mean Corpuscular Volume 91.5 fl (80-100); Mean Platelet Volume 10.2 fl (7.4-10.4); Monocytes Absolute Auto 0.7 K/mm3 (0.1-0.6); Monocytes Percent Auto 9.7 % (2.6-8.5); Neutrophils Absolute Auto 6.1 K/mm3 (1.3-6.7); Neutrophils Percent Auto 80.3 % (45.5-73.1); Platelet Count Result 113 k/mm3 (150-375); Red Blood Count 4.26 M/mm3 (4.6-6.20); Red Cell Distribution Width 12.8 % (11.5-14.5); White Blood Count 7.6 K/mm3 (4.5-10.0)
[2023-10-12 12:27] LABS: Alanine Aminotransferase 25 U/L (6-50); Alkaline Phosphatase 73 U/L (38-126); Anion Gap 7 mmol/L (4-12); Aspartate Amino Transferase 34 U/L (17-59); Blood Urea Nitrogen 20 mg/dL (9-20); Calcium 8.9 mg/dL (8.4-10.2); Carbon Dioxide 27 mmol/L (22-30); Chloride 101 mmol/L (98-107); Estimated CRCL calculation 41 ml/min; Estimated Glomerular Filt Rate 53; Glucose 107 mg/dL (65-110); Potassium 4.6 mmol/L (3.4-5.0); Sodium 135 mmol/L (137-145)
[2023-10-12 15:29] LABS: Influenza A QL RT-PCR Negative (Negative); Influenza B QL RT-PCR Negative (Negative); RSV RNA, RT-PCR Negative (Negative); SARS-CoV-2 RNA PCR Positive (Negative)
== END 2023-10-12 16:10 | disposition home or self-care (01) ==
PROVIDERS: Emergency Provider Emergency Medicine; PCP Internal Medicine
DX: U07.1 COVID-19 (principal); R55 Syncope and collapse; J45.909 Unspecified asthma, uncomplicated; Z86.73 Personal history of transient ischemic attack (TIA), and cerebral infarction without residual deficits; Z87.891 Personal history of nicotine dependence; Z79.899 Other long term (current) drug therapy; I44.0 Atrioventricular block, first degree
CPT/HCPCS: 36415; 71046; 80053; 85025; 85055; 87637; 93005; 96360; 99284; J7030

== ENCOUNTER 2023-11-25 09:57 | Outpatient (CLI) | payer MEDICARE, SELFPAY ==
[2023-11-25 14:07] LABS: Basophils Percent Auto 0.5 % (0.2-1.2); Eosinophils Absolute Auto 0.2 K/mm3 (0-0.3); Eosinophils Percent Auto 2.3 % (0-4.4); Hemoglobin 14.3 g/dL (14.0-18.0); Immature Granulocyte Absolute 0.01 K/mm3 (0.00-0.031); Immature Granulocyte Percent A 0.2 % (0-0.5); Lymphocytes Absolute Auto 1.09 K/mm3 (0.9-3.2); Lymphocytes Percent Auto 16.4 % (18.3-44.2); Mean Corpuscular HGB Conc 33.3 g/dl (32-36); Mean Corpuscular Hemoglobin 31.4 pg (26-34); Mean Corpuscular Volume 94.3 fl (80-100); Mean Platelet Volume 11.1 fl (7.4-10.4); Monocytes Absolute Auto 0.7 K/mm3 (0.1-0.6); Monocytes Percent Auto 10.5 % (2.6-8.5); Neutrophils Absolute Auto 4.7 K/mm3 (1.3-6.7); Neutrophils Percent Auto 70.1 % (45.5-73.1); Platelet Count Result 141 k/mm3 (150-375); Red Blood Count 4.56 M/mm3 (4.6-6.20); Red Cell Distribution Width 13.1 % (11.5-14.5); White Blood Count 6.7 K/mm3 (4.5-10.0)
[2023-11-25 14:35] LABS: Alanine Aminotransferase 26 U/L (6-50); Albumin Level 4.3 g/dL (3.5-5.1); Alkaline Phosphatase 80 U/L (38-126); Anion Gap 5 mmol/L (4-12); Aspartate Amino Transferase 64 U/L (17-59); Bilirubin,Total 0.9 mg/dL (0.2-1.3); Blood Urea Nitrogen 18 mg/dL (9-20); Calcium 9.9 mg/dL (8.4-10.2); Carbon Dioxide 30 mmol/L (22-30); Chloride 103 mmol/L (98-107); Cholesterol 130 mg/dL (0-200); Estimated Glomerular Filt Rate > 60; Glucose 92 mg/dL (65-110); HDL Direct 29 mg/dL; Potassium 4.5 mmol/L (3.4-5.0); Sodium 138 mmol/L (137-145); Triglycerides 237 mg/dL (<150)
[2023-11-25 14:46] LABS: LDL Cholesterol Direct 57 mg/dL
== END 2023-11-25 09:58 | disposition home or self-care (01) ==
LOC: ANHGOSHLAB 09:58
PROVIDERS: PCP Internal Medicine; Visit Provider Internal Medicine
DX: E78.5 Hyperlipidemia, unspecified (principal); I25.10 Atherosclerotic heart disease of native coronary artery without angina pectoris; D69.6 Thrombocytopenia, unspecified
CPT/HCPCS: 36415; 80053; 80061; 85025

== ENCOUNTER 2024-01-14 11:35 | Outpatient (CLI) | payer MEDICARE, SELFPAY ==
[2024-01-14 14:12] LABS: Basophils Percent Auto 0.6 % (0.2-1.2); Eosinophils Absolute Auto 0.1 K/mm3 (0-0.3); Hematocrit 41.6 % (42.0-52.0); Immature Granulocyte Absolute 0.01 K/mm3 (0.00-0.031); Immature Granulocyte Percent A 0.2 % (0-0.5); Lymphocytes Absolute Auto 1.18 K/mm3 (0.9-3.2); Mean Corpuscular HGB Conc 33.7 g/dl (32-36); Mean Corpuscular Hemoglobin 30.8 pg (26-34); Mean Corpuscular Volume 91.6 fl (80-100); Mean Platelet Volume 10.9 fl (7.4-10.4); Monocytes Absolute Auto 0.7 K/mm3 (0.1-0.6); Monocytes Percent Auto 10.1 % (2.6-8.5); Neutrophils Absolute Auto 4.5 K/mm3 (1.3-6.7); Neutrophils Percent Auto 69.1 % (45.5-73.1); Platelet Count Result 146 k/mm3 (150-375); Red Blood Count 4.54 M/mm3 (4.6-6.20); Red Cell Distribution Width 12.7 % (11.5-14.5); White Blood Count 6.6 K/mm3 (4.5-10.0)
[2024-01-14 16:43] LABS: Free T4 Free Thyroxine 0.97 ng/mL (0.78-2.19)
== END 2024-01-14 11:36 | disposition home or self-care (01) ==
LOC: ANHGOSHLAB 11:37
PROVIDERS: PCP Internal Medicine; Visit Provider Internal Medicine
DX: R53.83 Other fatigue (principal)
CPT/HCPCS: 36415; 84439; 84443; 85025

== ENCOUNTER 2024-06-02 08:23 | Outpatient (CLI) | payer MEDICARE, SELFPAY ==
--- OUTSIDE RECORDS SUMMARY | 2024-06-02 08:39 | XMS_ITS ---
Author Organization [facility] Address [address] [facility] [address] [place] [address] Phone Care Team Providers Care Wire Twisting Machine Operator Name Role Phone Manisha [facility]Y [facility] Unavailable [phone] Plan of Treatment No Plan of Treatment Recorded Assessments Includes: Assessments for all patient encounters No Assessments Recorded Medical Equipment - Implanted Devices Includes: Current and historical Devices No Medical Equipment Recorded Medications Administered Includes: Administered Medications in patient's chart No Administered Medications Recorded Results Includes: Results from 06/02/2021 through 06/02/2024 No Results Recorded For Specified Dates Social History No Social History Recorded - Smoking Status Unknown Medical History Includes: Medical History in patient's chart No Medical History Recorded Family History Includes: Family History in patient's chart No Family History Recorded Review of Systems Review of Systems not supported for this document type No Review of Systems Recorded Mental Status No Mental Status Recorded Functional Status No Functional Status Recorded Physical Exam Physical Exam not supported for this document type No Physical Exam Recorded Insurance Includes: Active Insurance Policies Plan Name Member ID Group # Subscriber Relationship Effect prudencio Dates 1 - [facility] Dual Complete/Chcf HMO/SNP/[facility] [id number] Pankaj Cornelius Self Clinical Notes Includes: Signed Clinical Notes starting from 10/04/2022 No Clinical Notes Recorded
--- OUTSIDE RECORDS SUMMARY | 2024-06-02 08:39 | XMS_ITS | Clinical Summary ---
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
--- OUTSIDE RECORDS SUMMARY | 2024-06-02 08:39 | XMS_ITS ---
Care Plan - [facility] Created on: June 02, 2024 Pankaj Cornelius : 1945 Sex: Male Author Organization [facility] Address [address] [facility] [address] [place] [address] Phone Care Team Providers Care Interpersonal Communications Professor Name Role Phone Man[facility] [phone]
--- OUTSIDE RECORDS SUMMARY | 2024-06-02 08:39 | XMS_ITS | Clinical Summary ---
Author Organization [facility] [address] [facility] [address] Address [address] [place] [address] Care Team Providers Care Fur Finisher Tailor Name Role Phone Onel Berrios DO Primary Care Provider [phone] Allergies Active Allergy Reactions Criticality Noted Date Comments Nuts Unknown 09/17/2019 Peanut Unknown 12/30/2017 Penicillin Blisters High 07/12/2022 Shellfish Containing Products Unknown 2019 Shrimp Unknown 12/30/2017 Medications omeprazole (PriLOSEC) 40 mg capsule Take 20 mg by mouth daily Active psyllium (METAMUCIL) powder Take 1 packet by mouth daily Active nitroglycerin (NITROSTAT) 0.[address] 1 tablet (0.4 mg total) under the tongue every 5 (five) minutes as needed for chest pain Max 3 doses. 60 tablet 3 0 Active Opzelura 1.5 % cream APPLY TO RASH AREAS ON HANDS TWICE A DAY FOR FLARES, THEN USE TWICE A WEEK FOR MAINTENANCE 3 Active metoprolol XL (TOPROL-XL) 25 mg extended release tabletIndication s:Low blood pressure, not hypotension Take 0.5 tablets (12.5 mg total) by mouth daily 4 Active isosorbide mononitrate ER (IMDUR) 30 mg 24 hr tabletIndication s:Coronary artery disease of [place] artery of [place] heart with stable angina pectoris Take 1 tablet (30 mg total) by mouth daily 90 tablet 3 4 Active rosuvastatin (CRESTOR) 20 mg tabletIndication s:Coronary artery disease of [place] artery of [place] heart with stable angina pectoris Take 1 tablet (20 mg total) by mouth daily 90 tablet 3 4 Active clopidogreL (PLAVIX) 75 mg tablet TAKE 1 TABLET BY MOUTH EVERY DAY 90 tablet 5 Active Active Problems Problem Noted Date Diagnosed Date Abnormal stress test 12/12/2023 Statin myopathy 01/02/2022 Mixed hyperlipidemia 01/12/2021 Drug-induced erectile dysfunction 09/07/2020 H/O: CVA (cerebrovascular accident) 06/16/2020 Coronary artery disease invo lving [place] coronary artery of [place] heart without angina pectoris 02/10/2020 Peripheral arterial disease 02/10/2020 Abdominal aortic aneurysm (AAA) 02/10/2020 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 Exertional angina 09/17/2019 History of tobacco abuse 09/17/2019 Other fatigue 09/17/2019 Resolved Problems Problem Noted Date Diagnosed Date Resolved Date Dyslipidemia 09/17/2019 01/12/2021 KHOURY (dyspnea on exertion) 09/17/2019 Surgical History Surgery Date Site/Laterality Comments CARPAL TUNNEL RELEASE Bilateral CARDIAC CATHETERIZATION Medical History Medical History Date Comments Hyperlipidemia Acid indigestion Abnormal stress test Hypertension Stroke (HCC) GERD (gastroesophageal reflux disease) Abdominal aortic aneurysm (AAA) Family History Medical History Relation Name Comments Cancer Brother 1 Relation Name Status Comments Brother 1 (Age 43) Brother 2 Alive Father (Age 92) Mother (Age 91) Social History Tobacco Use Types Packs/Day Years Used Date Smoking Tobacco: Former Cigarettes Q uit: 1983 Smokeless Tobacco: Former Quit: 1984 Tobacco Cessation:Counseling Given: Not Answered Alcohol Use Standard Drinks/Week Comments Yes 0 (1 standard drink = 0.6 oz pur e alcohol) 1 drink every 3 weeks AUDIT-C Answer Date Recorded Q1: How often do you have a drink containing alc ohol? Monthly or less 12/23/2023 Q2: How many drinks containi ng alcohol do you have on a typical day when you are drinking? 1 or 2 12/23/2023 Q3: How often do you have si x or more drinks on one occasion? Never 12/23/2023 Personal Safety Answer Date Recorded Have you ever been in or are you currently in a harmful physical or emotional relationship or is someone making you feel afraid or unsafe? Denies 12/23/2023 Sex and Gender Information Value Date Recorded Sex Assigned at Not on file Legal Sex Male 12:51 AM POWER SCREWDRIVER OPERATOR Gender Identity Male 01/10/2021 1:16 PM POWER SCREWDRIVER OPERATOR Sexual Orientation Not on file Obstetrics History Last Filed Vital Signs Vital Sign Reading Time Taken Comments Blood Pressure 124/62 02/02/2024 11:07 AM POWER SCREWDRIVER OPERATOR Pulse 68 02/02/2024 11:07 AM POWER SCREWDRIVER OPERATOR Temperature 36.8 C (98.3 F) 01/26/2024 11:03 AM POWER SCREWDRIVER OPERATOR Respiratory Rate 18 12/23/2023 6:46 AM CDT Oxygen Saturation 98% 02/02/2024 11:07 AM POWER SCREWDRIVER OPERATOR Inhaled Oxygen Concentration - - Weight 90 kg (198 lb 8 oz) 02/02/2024 11:[address] Height 175.3 cm (5' 9 ) 02/02/2024 11:07 AM POWER SCREWDRIVER OPERATOR Body Mass Index 29.31 02/02/2024 11:07 AM POWER SCREWDRIVER OPERATOR Plan of Treatment Health Maintenance Due Date Last Done Comments Depression Screening 1945 DTaP/Tdap/Td Vaccine (1 - Tdap) 06/16/1954 Hepatitis B Screening 06/16/1961 Zoster Vaccine (1 of 2) 06/16/1993 Well Visit 65+ 06/16/2008 Influenza Vaccine (Season Ended) 2024 11/10/2018, 12/22/2017, 12/01/2016, Additional history exists Fall Risk Assessment 12/22/2024 12/23/2023 Pneumococcal vaccine 65+ Completed 018, 12/18/2016, 12/01/2016, Additional history exists Insurance AETNA MEDICARE [facility] MEDICARE T MEDICARE Advance Directives For more information, please contact: [phone] * Full Code (Latest Code Status on File) Date Activated Date Inactivated Comments 12/23/2023 10:11 AM 12/23/2023 3:40 PM Care Teams Fur Finisher Tailor Relationship Specialty Start Date End Date Onel Berrios DO PCP - General Internal Medicine 07/14/23
--- OUTSIDE RECORDS SUMMARY | 2024-06-02 08:40 | XMS_ITS | Encounter Summary ---
Author Organization [employer] Address 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
--- OUTSIDE RECORDS SUMMARY | 2024-06-02 08:40 | XMS_ITS | Referral Summary ---
Author Organization [facility] [address] Address [address] [place] [address] Care Team Providers Care Truck Guard Name Role Phone Onel Berrios DO Primary Care Provider [phone] Allergies Active Allergy Reactions Criticality Noted Date [...] 24 hr tabletIndication s:Coronary artery disease of [place] artery of [place] heart with stable angina pectoris Take 1 tablet (30 mg total) by mouth daily 90 tablet 3 4 Active rosuvastatin (CRESTOR) 20 mg tabletIndication s:Coronary artery disease of [place] artery of [place] heart with stable angina pectoris Take 1 [...] accident) 06/16/2020 Coronary artery disease invo lving [place] coronary artery of [place] heart without angina pectoris 02/10/2020 Peripheral arterial [...] 09/17/2019 01/12/2021 KHOURY (dyspnea on exertion) 09/17/2019 Social History Tobacco Use Types Packs/Day Years [...] on file Legal Sex Male 12:51 AM FOOTWEAR FACTORY WORKER Gender Identity Male 01/10/2021 1:16 PM FOOTWEAR FACTORY WORKER Sexual Orientation Not on file Last Filed Vital Signs Vital Sign Reading Time Taken Comments Blood Pressure 124/62 02/02/2024 11:07 AM FOOTWEAR FACTORY WORKER Pulse 68 02/02/2024 11:07 AM FOOTWEAR FACTORY WORKER Temperature 36.8 C (98.3 F) 01/26/2024 11:03 AM FOOTWEAR FACTORY WORKER Respiratory Rate 18 12/23/2023 6:46 AM CDT Oxygen Saturation 98% 02/02/2024 11:07 AM FOOTWEAR FACTORY WORKER Inhaled Oxygen Concentration - - Weight 90 kg (198 lb 8 oz) 02/02/2024 11:[address] Height 175.3 cm (5' 9 ) 02/02/2024 11:07 AM FOOTWEAR FACTORY WORKER Body Mass Index 29.31 02/02/2024 11:07 AM FOOTWEAR FACTORY WORKER Plan of Treatment Not on file Insurance A[employer] MEDICARE Advance Directives For more information, please contact: [phone] * Full Code (Latest Code Status on File) Date Activated Date Inactivated Comments 12/23/2023 10:11 AM 12/23/2023 3:40 PM Care Teams Truck Guard Relationship Specialty Start Date End Date Onel Berrios DO PCP - General Internal Medicine 07/14/23
[2024-06-02 08:53] LABS: Basophils Percent Auto 0.5 % (0.2-1.2); Eosinophils Absolute Auto 0.3 K/mm3 (0-0.3); Eosinophils Percent Auto 5.5 % (0-4.4); Hematocrit 42.7 % (42.0-52.0); Hemoglobin 14.3 g/dL (14.0-18.0); Immature Granulocyte Absolute 0.01 K/mm3 (0.00-0.031); Immature Granulocyte Percent A 0.2 % (0-0.5); Lymphocytes Absolute Auto 1.08 K/mm3 (0.9-3.2); Mean Corpuscular HGB Conc 33.5 g/dl (32-36); Mean Corpuscular Volume 92.6 fl (80-100); Mean Platelet Volume 9.9 fl (7.4-10.4); Monocytes Absolute Auto 0.5 K/mm3 (0.1-0.6); Monocytes Percent Auto 8.8 % (2.6-8.5); Neutrophils Absolute Auto 3.7 K/mm3 (1.3-6.7); Platelet Count Result 156 k/mm3 (150-375); Red Blood Count 4.61 M/mm3 (4.6-6.20); White Blood Count 5.7 K/mm3 (4.5-10.0)
[2024-06-02 09:10] LABS: Alanine Aminotransferase 27 U/L (6-50); Albumin Level 4.6 g/dL (3.5-5.1); Alkaline Phosphatase 84 U/L (38-126); Anion Gap 9 mmol/L (4-12); Aspartate Amino Transferase 36 U/L (17-59); Bilirubin,Total 1.1 mg/dL (0.2-1.3); Blood Urea Nitrogen 19 mg/dL (9-20); Calcium 9.7 mg/dL (8.4-10.2); Carbon Dioxide 27 mmol/L (22-30); Chloride 103 mmol/L (98-107); Cholesterol 141 mg/dL (0-200); Estimated Glomerular Filt Rate 57; Glucose 104 mg/dL (65-110); HDL Direct 36 mg/dL; Potassium 4.1 mmol/L (3.4-5.0); Sodium 139 mmol/L (137-145); Triglycerides 214 mg/dL (<150)
[2024-06-02 09:21] LABS: LDL Cholesterol Direct 63 mg/dL
[2024-06-02 09:49] LABS: Hemoglobin A1C 5.9 % (<5.7)
== END 2024-06-02 08:24 | disposition home or self-care (01) ==
PROVIDERS: PCP Internal Medicine; Visit Provider Internal Medicine
DX: I25.10 Atherosclerotic heart disease of native coronary artery without angina pectoris (principal); E78.5 Hyperlipidemia, unspecified; R53.83 Other fatigue; E03.9 Hypothyroidism, unspecified; R73.9 Hyperglycemia, unspecified
CPT/HCPCS: 36415; 80053; 80061; 83036; 84443; 85025

== ENCOUNTER 2024-09-10 10:50 | Outpatient (CLI) | payer MEDICARE, SELFPAY ==
--- OUTSIDE RECORDS SUMMARY | 2024-09-10 10:57 | XMS_ITS | Clinical Summary ---
Author Organization [facility] Address [address] [facility] Attn: Epic Prelude ADT [place] [address] Care Team Providers Care Machine Presser Name Role Phone Unavailable Primary Care Provider Unavailabl e Social History Tobacco Use Types Packs/Day Years Used Date Smoking Tobacco: Never Assessed Sex and Gender Information Value Date Recorded Sex Assigned at Not on file Legal Sex Male 3:48 AM ASSORTER Gender Identity Not on file Sexual Orientation Not on file Plan of Treatment Health Maintenance Due Date Last Done Comments DTAP/TDAP/TD VACCINES (1 - Tdap) 06/16/1962 PNEUMOCOCCAL VACCINE 50+ YEARS (1 of 1 - PCV) 06/16/18 94 ZOSTER VACCINE (1 of 2) 06/16/1993 RSV VACCINE (60+ or ) (1 - 1-dose 75+ series) 06/16/2018 INFLUENZA VACCINE (#1) 2024
--- OUTSIDE RECORDS SUMMARY | 2024-09-10 10:57 | XMS_ITS | Referral Summary ---
Author Organization [facility] [address] Address [address] [place] [address] Care Team Providers Care Security Administrator Name Role Phone Onel Berrios DO Primary Care Provider [phone] Allergies Active Allergy Reactions Criticality Noted Date [...] TWICE A WEEK FOR MAINTENANCE 3 Active isosorbide mononitrate ER (IMDUR) 30 mg 24 hr tabletIndication s:Coronary artery disease of [place] artery [place] heart with stable angina pectoris Take 1 tablet (30 mg total) by mouth daily 90 tablet 3 4 Active rosuvastatin (CRESTOR) 20 mg tabletIndication s:Coronary artery disease of [place] artery of [place] heart with stable angina pectoris Take 1 tablet (20 mg total) by mouth daily 90 tablet 3 4 Active metoprolol XL (TOPROL-XL) 25 mg extended release tabletIndication s:Low blood pressure, not hypotension TAKE 1 TABLET BY MOUTH EVERY DAY 90 tablet 2 5 Active clopidogreL (PLAVIX) 75 mg tablet Take 1 tablet (75 mg total) by mouth daily 90 tablet 1 5 Active Active Problems Problem Noted Date Diagnosed Date Abnormal stress test 12/12/2023 Statin myopathy 01/02/2022 Mixed hyperlipidemia 01/12/2021 Drug-induced erectile dysfunction 09/07/2020 H/O: CVA (cerebrovascular accident) 06/16/2020 Coronary artery disease invo [place]ving [place] coronary artery of [place] heart without angina pectoris 02/10/2020 Peripheral arterial [...] on file Legal Sex Male 12:51 AM SELF PROPELLED DREDGE OPERATOR Gender Identity Male 01/10/2021 1:16 PM SELF PROPELLED DREDGE OPERATOR Sexual Orientation Not on file Last Filed Vital Signs Vital Sign Reading Time Taken Comments Blood Pressure 124/62 02/02/2024 11:07 AM SELF PROPELLED DREDGE OPERATOR Pulse 68 02/02/2024 11:07 AM SELF PROPELLED DREDGE OPERATOR Temperature 36.8 C (98.3 F) 01/26/2024 11:03 AM SELF PROPELLED DREDGE OPERATOR Respiratory Rate 18 12/23/2023 6:46 AM CDT Oxygen Saturation 98% 02/02/2024 11:07 AM SELF PROPELLED DREDGE OPERATOR Inhaled Oxygen Concentration - - Weight 90 kg (198 lb 8 oz) 02/02/2024 11:[address] Height 175.3 cm (5' 9) 02/02/2024 11:07 AM SELF PROPELLED DREDGE OPERATOR Body Mass Index 29.31 02/02/2024 11:07 AM SELF PROPELLED DREDGE OPERATOR Plan of Treatment Not on file Insurance [employer]ET[employer] MEDICARE Advance Directives For more information, please contact: [phone] * Full Code (Latest Code Status on File) Date Activated Date Inactivated Comments 12/23/2023 10:11 AM 12/23/2023 3:40 PM Care Teams Security Administrator Relationship Specialty Start Date End Date Onel Berrios DO PCP - General Internal Medicine 07/14/23
--- OUTSIDE RECORDS SUMMARY | 2024-09-10 10:57 | XMS_ITS | Encounter Summary ---
Author Organization [employer] Address [address] [place] [address] Care Team Providers Care Food And Beverage Intern Name Role Phone Unavailable Primary Care Provider [...] on file Legal Sex Male 3:48 AM STAFFING RN Gender Identity Not on file Sexual Orientation Not on file documented as of this encounter Plan of Treatment Not on file documented as of this encounter Visit Diagnoses Diagnosis Diverticulosis of colon (without mention of hemorrhage)- Primary documented in this encounter
--- OUTSIDE RECORDS SUMMARY | 2024-09-10 10:57 | XMS_ITS | Clinical Summary ---
Author Organization [facility] [address] Address [address] [place] [address] Care Team Providers Care Automotive Service Assistant Name Role Phone Onel Berrios DO Primary Care Provider [phone] Allergies Active Allergy Reactions Criticality Noted Date [...] 24 hr tabletIndication s:Coronary artery disease of [place] artery of [place] heart with stable angina pectoris Take 1 tablet (30 mg total) by mouth daily 90 tablet 3 4 Active rosuvastatin (CRESTOR) 20 mg tabletIndication s:Coronary artery disease of [place] artery of [place] heart with stable angina pectoris Take 1 [...] accident) 06/16/2020 Coronary artery disease invo lving [place] coronary artery of [place] heart without angina pectoris 02/10/2020 Peripheral arterial [...] on file Legal Sex Male 12:51 AM SOURCING CONSULTANT Gender Identity Male 01/10/2021 1:16 PM SOURCING CONSULTANT Sexual Orientation Not on file Obstetrics History Last Filed Vital Signs Vital Sign Reading Time Taken Comments Blood Pressure 124/62 02/02/2024 11:07 AM SOURCING CONSULTANT Pulse 68 02/02/2024 11:07 AM SOURCING CONSULTANT Temperature 36.8 C (98.3 F) 01/26/2024 11:03 AM SOURCING CONSULTANT Respiratory Rate 18 12/23/2023 6:46 AM CDT Oxygen Saturation 98% 02/02/2024 11:07 AM SOURCING CONSULTANT Inhaled Oxygen Concentration - - Weight 90 kg (198 lb 8 oz) 02/02/2024 11:[address] Height 175.3 cm (5' 9) 02/02/2024 11:07 AM SOURCING CONSULTANT Body Mass Index 29.31 02/02/2024 11:07 AM SOURCING CONSULTANT Plan of Treatment Health Maintenance Due Date Last Done Comments Depression Screening 1945 DTaP/Tdap/Td Vaccine (1 - Tdap) 06/16/1954 Hepatitis B Screening 06/16/1961 Zoster Vaccine (1 of 2) 06/16/1993 Well Visit 65+ 06/16/2008 Influenza Vaccine (Season Ended) 2024 11/10/2018, 12/22/2017, 12/01/2016, Additional history exists Fall Risk Assessment 12/22/2024 12/23/2023 Pneumococcal vaccine 65+ Completed 018, 12/18/2016, 12/01/2016, Additional history exists Insurance AETNA MEDICARE [facility] MEDICARE T MEDICARE Advance Directives For more information, please contact: [phone] * Full Code (Latest Code Status on File) Date Activated Date Inactivated Comments 12/23/2023 10:11 AM 12/23/2023 3:40 PM Care Teams Automotive Service Assistant Relationship Specialty Start Date End Date Onel Berrios DO PCP - General Internal Medicine 07/14/23
[2024-09-10 11:20] LABS: Hematocrit 41.6 % (42.0-52.0); Hemoglobin 13.8 g/dL (14.0-18.0); Immature Granulocyte Percent A 0.0 % (0-0.5); Immature Platelet Fraction Pct 4.2 % (0.9-11.2); Lymphocytes Absolute Auto 0.98 K/mm3 (0.9-3.2); Mean Corpuscular HGB Conc 33.2 g/dl (32-36); Mean Corpuscular Hemoglobin 30.8 pg (26-34); Mean Corpuscular Volume 92.9 fl (80-100); Nucleated Red Blood Cells Absolute Auto 0.000 K/mm3 (0.0-0.012); Nucleated Red Blood Cells Perc 0.0 % (0.0-0.2); Platelet Count Result 125 k/mm3 (150-375); Red Blood Count 4.48 M/mm3 (4.6-6.20); White Blood Count 5.3 K/mm3 (4.5-10.0)
== END 2024-09-10 10:51 | disposition home or self-care (01) ==
LOC: ANHSURGERY 10:53
PROVIDERS: PCP Internal Medicine; Visit Provider Surgery
DX: K40.90 Unilateral inguinal hernia, without obstruction or gangrene, not specified as recurrent (principal)
CPT/HCPCS: 36415; 85025; 85055; 86850; 86900; 86901

== ENCOUNTER 2024-09-17 00:33 | Day surgery (SDC) | payer MEDICARE, SELFPAY ==
[2024-09-10 08:59] VITALS: BMI 27.2
--- NOTE | 2024-09-10 09:18 | PC.NURSE ---
Report to the Outpatient Waiting Room, entrance under the green pavilion located off [facility], at time ___10:00AM____ on date ___09/17/24____. Planned Procedure Time: __12:00PM .? Time changes happen often and if your time is changed the preop area will call you the afternoon before. - You and your visitor will be asked to self-screen and do not enter if you have any COVID symptoms. Please call surgeon if you need to reschedule. - A mask is optional within the hospital at this time. Patients may have clear liquids (water, carbonated beverages, clear teas, apple juice) until 3 hours prior to surgery (9:00AM) with a maximum of 20 ounces. - No food from midnight until time of surgery and no smoking, or chewing tobacco (or any form of nicotine). No chewing gum, candy or mints. Take only the following medications with a SIP of water on the morning of surgery: ____ISOSORBIDE, METOPROLOL DO NOT STOP ANY OF YOUR OTHER PRESCRIPTION MEDICATIONS PRIOR TO SURGERY EXCEPT THE FOLLOWING Hold all vitamins and supplements for 3 days per anesthesiologist. Medications to discontinue per physician ____HOLD PLAVIX 7 DAYS PRE-OP PER DR URBINA Date to take last dose 09/09/24 Please no make-up, nail [place], hairspray, perfume, deodorant, or body powder the day of surgery.? No jewelry (including any body piercings) or valuables the day of surgery, leave them at home.? Please take a shower or bath the night before, or the morning of, surgery with an antibacterial soap.? Wear comfortable, loose fitting clothing.? - Jewelry must be removed prior to entering the operating room.? Rings and piercings that are not removed may be cut off. - The hospital will not accept responsibility for valuables.? - Please leave all valuables, including medications, at home the day of surgery. If you are going home after surgery, a licensed tanker truck driver must drive you home.? - NO public transportation without another adult if you receive anesthesia. - We recommend that an adult stay with you for 24 hours following discharge. - We also recommend that you do not drive, make important decision, drink alcoholic beverages, or take any drugs that were not prescribed by your health care provider for at least 24 hours after your discharge time. Follow any additional instructions given to you from your surgeon. Telephone instructions given to ____PATIENT and asked if any additional questions and then verbalized understanding. Patient advised to call surgeon office or pre surgery nurse liaison [phone] if any additional questions.
[2024-09-17] VITALS (9 sets, daily range): BP systolic 123–171; BP diastolic 64–88; PULSE 57–70; RESP 12–20; TEMP 36.6; O2SAT 94–99
--- OUTSIDE RECORDS SUMMARY | 2024-09-17 00:36 | XMS_ITS | Clinical Summary ---
Author Organization [facility] [address] Address [address] [place] [address] Care Team Providers Care Pharmacist In Charge Owner Name Role Phone Onel Berrios DO Primary Care Provider [phone] Allergies Active Allergy Reactions Criticality Noted Date [...] 24 hr tabletIndication s:Coronary artery disease of [place] artery of [place] heart with stable angina pectoris Take 1 tablet (30 mg total) by mouth daily 90 tablet 3 4 Active rosuvastatin (CRESTOR) 20 mg tabletIndication s:Coronary artery disease of [place] artery of [place] heart with stable angina pectoris Take 1 [...] accident) 06/16/2020 Coronary artery disease invo lving [place] coronary artery of [place] heart without angina pectoris 02/10/2020 Peripheral arterial [...] on file Legal Sex Male 12:51 AM ANIMAL HOSPITAL CLERK Gender Identity Male 01/10/2021 1:16 PM ANIMAL HOSPITAL CLERK Sexual Orientation Not on file Obstetrics History Last Filed Vital Signs Vital Sign Reading Time Taken Comments Blood Pressure 124/62 02/02/2024 11:07 AM ANIMAL HOSPITAL CLERK Pulse 68 02/02/2024 11:07 AM ANIMAL HOSPITAL CLERK Temperature 36.8 C (98.3 F) 01/26/2024 11:03 AM ANIMAL HOSPITAL CLERK Respiratory Rate 18 12/23/2023 6:46 AM CDT Oxygen Saturation 98% 02/02/2024 11:07 AM ANIMAL HOSPITAL CLERK Inhaled Oxygen Concentration - - Weight 90 kg (198 lb 8 oz) 02/02/2024 11:[address] Height 175.3 cm (5' 9) 02/02/2024 11:07 AM ANIMAL HOSPITAL CLERK Body Mass Index 29.31 02/02/2024 11:07 AM ANIMAL HOSPITAL CLERK Plan of Treatment Health Maintenance Due Date Last Done Comments Depression Screening 1945 DTaP/Tdap/Td Vaccine (1 - Tdap) 06/16/1954 Hepatitis B Screening 06/16/1961 Zoster Vaccine (1 of 2) 06/16/1993 Well Visit 65+ 06/16/2008 Influenza Vaccine (#1) 2024 9, 12/22/2017, 12/01/2016, Additional history exists Fall Risk Assessment 12/22/2024 12/23/2023 Pneumococcal vaccine 65+ Completed 018, 12/18/2016, 12/01/2016, Additional history exists Insurance [employer] MEDICARE T MEDICARE T MEDICARE Advance Directives For more information, please contact: [phone] * Full Code (Latest Code Status on File) Date Activated Date Inactivated Comments 12/23/2023 10:11 AM 12/23/2023 3:40 PM Care Teams Pharmacist In Charge Owner Relationship Specialty Start Date End Date Onel Berrios DO PCP - General Internal Medicine 07/14/23
--- OUTSIDE RECORDS SUMMARY | 2024-09-17 00:36 | XMS_ITS | Encounter Summary ---
Author Organization [employer] Address [address] [place] [address] Care Team Providers Care Picker/Puller Name Role Phone Unavailable Primary Care Provider [...] on file Legal Sex Male 3:48 AM FLOUR INSPECTOR Gender Identity Not on file Sexual Orientation Not on file documented as of this encounter Plan of Treatment Not on file documented as of this encounter Visit Diagnoses Diagnosis Diverticulosis of colon (without mention of hemorrhage)- Primary documented in this encounter
--- OUTSIDE RECORDS SUMMARY | 2024-09-17 00:36 | XMS_ITS | Encounter Summary ---
Author Organization [facility] Healthcare Address [address] [place] [address] Care Team Providers Care Admissions Gate Attendant Name Role Phone Archie Ervin MD Primary Care Provider [phone] Onel Berrios DO Primary Care Provider [phone] Encounter Details Date Type Department Care Team (Late st Contact Info) Description 08/05/2019 Orders Only [facility] Health Information Management [address] [place] [address] Scanning, Provider Social History Tobacco Use Types Packs/Day Years Used Date Smoking Tobacco: Never Assessed Sex and Gender Information Value Date Recorded Sex Assigned at Not on file Legal Sex Male 12:51 AM MASCARA MOLDER Gender Identity Male 01/10/2021 1:16 PM MASCARA MOLDER Sexual Orientation Not on file documented as of this encounter Plan of Treatment Not on file documented as of this encounter Procedures Procedure Name Priority Date/Time Associated Diagnosis Comments SCAN - RADIOLOGY/IMAGING 08/05/2019 documented in this encounter Results * SCAN - RADIOLOGY/IMAGING (08/05/2019) Anatomical Region Laterality Modality Other us Provider Scanning Final Result documented in this encounter Visit Diagnoses Not on filedocumented in this encounter Care Teams Admissions Gate Attendant Relationship Specialty Start Date End Date Archie Ervin MD [address] [facility] [address] [place] [address] PCP - General Internal Medicine 08/05/19 07/13/23 Onel Berrios DO [address] [facility] [address] [place] [address] PCP - General Internal Medicine 07/14/23 documented as of this encounter
--- OUTSIDE RECORDS SUMMARY | 2024-09-17 00:36 | XMS_ITS | Encounter Summary ---
Author Organization [facility] Healthcare Address [address] [place] [address] Care Team Providers Care Newspaper Delivery Counselor Name Role Phone Onel Berrios DO Primary Care Provider [phone] Encounter Details Date Type Department Care Team (Late st Contact Info) Description 10/12/2023 Orders Only [facility] Information Management [address] [place] [address] Scanning, Provider Social History Tobacco Use Types Packs/Day Years Used Date Smoking Tobacco: Former Cigarettes Q uit: 1983 Smokeless Tobacco: Former Quit: 1985 Alcohol Use Standard Drinks/Week Comments Yes 0 (1 standard drink = 0.6 oz pur e alcohol) 1 drink every 3 weeks AUDIT-C Answer Date Recorded Q1: How often do you have a drink containing alc ohol? Monthly or less 01/21/2022 Q2: How many drinks containi ng alcohol do you have on a typical day when you are drinking? 1 or 2 01/21/2022 Q3: How often do you have si x or more drinks on one occasion? 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 Gender Identity Male 01/10/2021 1:16 PM CLINICAL ACCOUNT SPECIALIST Sexual Orientation Not on file documented as of this encounter Plan of Treatment Not on file documented as of this encounter Procedures Procedure Name Priority Date/Time Associated Diagnosis Comments SCAN - RADIOLOGY/IMAGING 10/12/2023 documented in this encounter Results * SCAN - RADIOLOGY/IMAGING (10/12/2023) Anatomical Region Laterality Modality Other us Provider Scanning Edited Result - Final documented in this encounter Visit Diagnoses Not on filedocumented in this encounter Care Teams Newspaper Delivery Counselor Relationship Specialty Start Date End Date Onel Berrios DO PCP - General Internal Medicine 07/14/23 documented as of this encounter
--- OUTSIDE RECORDS SUMMARY | 2024-09-17 00:36 | XMS_ITS | Continuity of Care Document ---
Author Organization [facility] Address [address] [place] [address] [address] [place] [address] Phone Care Team Providers Care Edger Machine Helper Name Role Phone Monroe PT,MPT,ATC, Caden Unavailable Unavai lable Procedures Procedure Date Therapeutic Exercise Therapeutic Activities Therapeutic Exercise Therapeutic Activities Manual Therapy Hot or Cold Pack Electrical Stimulation Therapeutic Exercise Therapeutic Activities Manual Therapy Hot or Cold Pack Electrical Stimulation Therapeutic Exercise Therapeutic Activities Manual Therapy Hot or Cold Pack Electrical Stimulation Therapeutic Exercise Therapeutic Activities Manual Therapy Hot or Cold Pack Electrical Stimulation Therapeutic Exercise Therapeutic Activities Manual Therapy Hot or Cold Pack Electrical Stimulation Therapeutic Exercise Therapeutic Activities Manual Therapy Hot or Cold Pack Electrical Stimulation Therapeutic Exercise Therapeutic Activities Manual Therapy Hot or Cold Pack Electrical Stimulation Therapeutic Exercise Manual Therapy Hot or Cold Pack Electrical Stimulation Therapeutic Exercise Manual Therapy Hot or Cold Pack Electrical Stimulation PT Evaluation Low Complexity Therapeutic Exercise Manual Therapy Advance Directives Directive Yes / No Effective Date File Name No Information Encounters Encounter Description Practice Location Reason(s) For Visit Diagnoses Date Provider Providers Copied on Encounter [facility], [id number], tel:[phone] [place] Lumbago with sciatica, right sidePain in right legOther specified dorsopathies, lumbar regionStiffness of right hip, not elsewhere classifiedOth symptoms and signs involving the musculoskeletal systemStrain msl/fasc/tnd post grp at [facility], right thigh, init Sep-1 2-201 [facility] [place] [place], [id number], tel:[phone] [place] Lumbago with sciatica, right sidePain in right legOther specified dorsopathies, lumbar regionStiffness of right hip, not elsewhere classifiedOth symptoms and signs involving the musculoskeletal systemStrain msl/fasc/tnd post grp at [facility], right thigh, init Sep-1 0-201 8 [facility] , [place] [place], [id number], tel:[phone] [place] Lumbago with sciatica, right sidePain in right legOther specified dorsopathies, lumbar regionStiffness of right hip, not elsewhere classifiedOth symptoms and signs involving the musculoskeletal systemStrain msl/fasc/tnd post grp at [facility], right thigh, init Sep-0 7-201 8 [facility] [place] [place]. [facility], [id number], tel:[phone] [place] Lumbago with sciatica, right sidePain in right legOther specified dorsopathies, lumbar regionStiffness of right hip, not elsewhere classifiedOth symptoms and signs involving the musculoskeletal systemStrain msl/fasc/tnd post grp at [facility], right thigh, init Sep-0 5-201 [address] [place], [place]. [facility], [place], [place], [id number], [place] tel:[phone] [place] Lumbago with sciatica, right sidePain in right legOther specified dorsopathies, lumbar regionStiffness of right hip, not elsewhere classifiedOth symptoms and signs involving the musculoskeletal systemStrain msl/fasc/tnd post grp at thi lev, right thigh, init 8 [facility] , [place] [place], [place], [place], [id number], [place] tel:[phone] [place] Lumbago with sciatica, right sidePain in right legOther specified dorsopathies, lumbar regionStiffness of right hip, not elsewhere classifiedOth symptoms and signs involving the musculoskeletal systemStrain msl/fasc/tnd post grp at [facility] lev, right thigh, init 8 [facility] , [place] [place]. [facility], [place], [place], [id number], [place] tel:[phone] [place] Lumbago with sciatica, right sidePain in right legOther specified dorsopathies, lumbar regionStiffness of right hip, not elsewhere classifiedOth symptoms and signs involving the musculoskeletal systemStrain msl/fasc/tnd post grp at thi lev, right thigh, init [address] [place]. , [place], [place]. [facility], [place], [place], [id number], [place] tel:[phone] [place] Lumbago with sciatica, right sidePain in right legOther specified dorsopathies, lumbar regionStiffness of right hip, not elsewhere classifiedOth symptoms and signs involving the musculoskeletal systemStrain msl/fasc/tnd post grp at thi lev, right thigh, init [address] [place] , [place], [place]. [facility], [place], [place], [id number], [place] tel:[phone] [place] Lumbago with sciatica, right sidePain in right legOther specified dorsopathies, lumbar regionStiffness of right hip, not elsewhere classifiedOth symptoms and signs involving the musculoskeletal systemStrain msl/fasc/tnd post grp at [facility], right thigh, init [address] [place] [address] [facility], [address], [facility], . tel: [phone] [address], [id number], tel:[phone] [place] Lumbago with sciatica, right sidePain in right legOther specified dorsopathies, lumbar regionStiffness of right hip, not elsewhere classifiedOth symptoms and signs involving the musculoskeletal systemStrain msl/fasc/tnd post grp at [facility], right thigh, in [address] [id number] [place] [address], [address], [facility], . tel: [phone] [address], [place], [place], [id number], tel:[phone] [place] Lumbago with sciatica, right sidePain in right legOther specified dorsopathies, lumbar regionStiffness of right hip, not elsewhere classifiedOth symptoms and signs involving the musculoskeletal systemStrain msl/fasc/tnd post grp at [facility], right thigh, init [address] [place] [address] [facility], [facility] [[email or web address]] [address], [place], [facility], . tel: [phone] Family History Family Member Type Diagnosis Age At Onset No Information Payers Payer name Insurance type Covered constitution party ID Luis Miguel ny(s) [employer] [id number] Social History Type Description Quantity Date Captured Comments Sex Male Smoking Status No Information Chief Complaint And Reason For Visit No Information Reason For Referral Reason For Referral No Information History Of Present Illness Encounter Date Complaint History Of Prese nt Illness No Information Functional Status Date Functional Assessmen t No Information Instructions Date Instruction Additional Infor mation No Information Assessments Type Assessment Date No Information Patient Care Teams Name Effective Dates (start - stop) Status Members No Information
--- OUTSIDE RECORDS SUMMARY | 2024-09-17 00:36 | XMS_ITS | Referral Summary ---
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 Take 1 [...] accident) 06/16/2020 Coronary artery disease invo lving ambler coronary artery of ambler heart without angina pectoris 02/10/2020 Peripheral arterial [...] on file Legal Sex Male 12:51 AM LIMO DRIVER Gender Identity Male 01/10/2021 1:16 PM LIMO DRIVER Sexual Orientation Not on file Last Filed Vital Signs Vital Sign Reading Time Taken Comments Blood Pressure 124/62 02/02/2024 11:07 AM LIMO DRIVER Pulse 68 02/02/2024 11:07 AM LIMO DRIVER Temperature 36.8 C (98.3 F) 01/26/2024 11:03 AM LIMO DRIVER Respiratory Rate 18 12/23/2023 6:46 AM CDT Oxygen Saturation 98% 02/02/2024 11:07 AM LIMO DRIVER Inhaled Oxygen Concentration - - Weight 90 kg (198 lb 8 oz) 02/02/2024 11:[address] Height 175.3 cm (5' 9) 02/02/2024 11:07 AM LIMO DRIVER Body Mass Index 29.31 02/02/2024 11:07 AM LIMO DRIVER Plan of Treatment Not on file Insurance [employer] MED[employer]ARE Advance Directives For more information, please contact: [phone] * Full Code (Latest Code Status on File) Date Activated Date Inactivated Comments 12/23/2023 10:11 AM 12/23/2023 3:40 PM Care Teams Cotton Bag Clipper Relationship Specialty Start Date End Date Onel Berrios DO PCP - General Internal Medicine 07/14/23
--- OUTSIDE RECORDS SUMMARY | 2024-09-17 00:36 | XMS_ITS | Clinical Summary ---
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
[2024-09-17] MEDS: LACTATED RINGERS 1,000 ML 30 ML IV CONT ×2 (11:00→14:18)
--- NOTE | 2024-09-17 11:27 | P.OP_ITS ---
Procedure Note - Detailed Date of Procedure 09/17/24 Pre-op Diagnosis right inguinal hernia Post-op Diagnosis Same Procedure Performed robotic laparoscopic repair right inguinal hernia with mesh Surgeon Bradley Carty MD [facility]hs Engineer ESTEBAN Luz Anesthesia General Indications patient has intermittent right inguinal bulge that is painful at times. Exam shows right inguinal reducible hernia. Findings Direct right inguinal hernia Description of Procedure Patient was taken to surgery and induced into general anesthesia. The abdomen is prepped and draped. Trocars were placed in the usual fashion using initially an applied Medical optical trocar on the left upper quadrant. The robotic trocar firs were all placed under direct visualization. Patient was placed in reverse Trendelenburg. After the robotic in strong months were in place, the surgeon went to the robotic console. An anterior peritoneal flap was developed above the inguinal canal structures. The flap was developed broadly from anterior to posterior. Medially, we noted the transversalis fascia and the direct hernia. We continued this dissection just behind the right rectus muscle until Noel's ligament was seen. We broadly dissected in this area exposing Noel's ligament and then, medially, the pubis. We dissected couple of cm left of the pubis and midline for accommodation of the medial edge of the mesh. We then continued the dissection of the direct hernia from the inguinal canal contents. The peritoneum was dissected carefully and we found and avoided the vas deferens and testicular vessels. Dissection was continued broadly until we had the edge of the peritoneum well beyond the area where the posterior edge of the mesh would lie. More medially, we dissected the bladder away from Noel's ligament and the pubis. Medially we dissected to the bituminous paving machine operator plug. Cautery was used for hemostasis which was excellent throughout the dissection. Eventually, the inguinal anatomy was dissected adequately to proceed with mesh placement. An extra-large, 17 x 12 cm, right mid 3DMax mesh was then placed in the abdomen. It was positioned over the inguinal canal structures. A 3-0 Vicryl suture was placed to secure the mesh to Noel's ligament. Two additional 3-0 Vicryl sutures were placed anteriorly, 1 medial and 1 lateral to further keep the mesh from sliding. All looked quite good. I then used 3-0 V lock in running fashion and closed the peritoneal flap. There was a small hole in the peritoneal flap on its posterior aspect. This was closed with some residual 3-0 Vicryl suture. We then removed both the needles. Instruments were removed and the robot was undocked. CO2 was evacuated. Skin wounds were closed with subcuticular 4-0 Monocryl skin suture. The wounds were dressed with Exofin surgical adhesive. An athletic supporter was placed. Patient was then awakened and taken to recovery in good condition. Sponge and needle counts were correct x2. Implants Extra-large, 17 x 12 cm, right mid 3DMax mesh Estimated Blood Loss -5 Drains No Packing No Pathology None sent Complications None Condition Stable Disposition PACU [facility] Billing Surgery - Charge Forward: Surgery Billing (robotic laparoscopic repair right inguinal hernia with mesh)
[2024-09-17] MEDS: ACETAMINOPHEN 500 MG TABLET 1000 MG PO (11:30)
[2024-09-17] MEDS: KETOROLAC 15 MG/ML VIAL (*BKC) IV PUSH (11:30)
--- NOTE | 2024-09-17 11:38 | WPDANESEPPF ---
Anes - Initial Pre Proc Eval Procedure: Operation Date: 09/17/24 12:00 Proposed Procedures p Robotic Repair Right Inguinal Hernia with Mesh - Bradley Carty MD Date/Time: 09/17/24 11:38 Surgeon: Bradley Carty MD Pre Op Diagnosis: right inguinal hernia Patient Data Age: 79 Gender: M Height: 1.77 m Weight: 85 kg Allergies Allergy/AdvReac Type Severity Reaction Status Date / Time nut - unspecified Allergy Severe Swelling Verified 09/10/24 08:53 of Lip/Tongue/Throat shrimp Allergy Severe Swelling Verified 09/10/24 08:53 of Lip/Tongue/Throat Penicillins Allergy Mild Rash Verified 09/10/24 08:53 Home Medications ?Medication ?Instructions ?Recorded ?Confirmed ?Type psyllium husk 3.4 gram/5.4 gram 1 tbsp PO DAILY 02/02/19 09/10/24 History oral powder (Metamucil) nitroglycerin 0.4 mg sublingual 0.4 mg sublingual Q5M PRN Chest 09/22/19 09/10/24 History tablet (Nitrostat) Pain omeprazole 40 mg capsule,delayed 40 mg PO DAILY 09/22/19 09/10/24 History release isosorbide mononitrate 30 mg 30 mg PO DAILY #30 tabs 09/23/19 09/10/24 Rx tablet,extended release 24 hr rosuvastatin 20 mg tablet 20 mg PO DAILY #30 tabs 09/23/19 09/10/24 Rx clopidogrel 75 mg tablet (Plavix) 75 mg PO DAILY 09/01/20 09/10/24 History metoprolol tartrate 25 mg tablet 12.5 mg PO QAM 06/22/21 09/10/24 History oxycodone-acetaminophen 5 mg-325 0.5 - 1 tablet PO Q4H PRN pain #10 09/17/24 Rx mg tablet (Percocet) tabs Patient hx anesthesia problems: none Family hx anesthesia problems: none Results Review: All pre-operative results and documents have been reviewed as part of the pre-operative evaluation. [facility] Past Medical History Medical History Carpal tunnel syndrome, bilateral Stroke Asthma Vertigo Dislocated shoulder Family History Family History Father , 92 natural causes. No problems noted. Mother , 90 Natural causes. No problems noted. Sibling No problems noted. Sibling , 43 cancer No problems noted. Social History Social History Smoking packs per day: 1 Smoking cigarettes per day: 20.0 Years smoked: 22 Smoking pack-years: 22.00 Smoking status: Former smoker Tobacco type: cigarettes Second hand tobacco smoke exposure: Yes Smoking end date: 08/25/83 Alcohol intake: current Drinks per week: 1 Substance use: never Substance use type: does not use Last use: 1984 Do You Feel Safe in your Home?: Yes Lack of Transportation: No Lack of Food: Never True Current Housing: I Have Housing Concerned About Future Housing: No Difficulty Paying Gas/Electric Bills: No Difficulty Paying for Meds: No Currently Unemployed: No Education: Master's Degree or Higher Difficulty w/ Childcare or Family Care: No Living arrangements: with family Additional living arrangements comments: Occupation/Education: 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 Informed Consent: The patient's anesthetic plan and its attendant risks and benefits were discussed with the patient/family/POA. Questions were solicited and answers provided to the satisfaction of the patient/family/POA.
--- NOTE | 2024-09-17 11:50 | WPDHPUPDATE1 ---
History and Physical Update Update Date/Time: 09/17/24 11:50 History and Physical has been reviewed, including an updated exam of the patient. There are NO changes in the patient's condition. Risks, benefits, and alternatives have been discussed and questions answered. Patient agrees to proceed with procedure.
[2024-09-17] MEDS: ceFAZolin 2 GM in SODIUM CHLORIDE 0.9% IV 50 ML 100 ML IVPB (12:00)
[2024-09-17] MEDS: BUPIVACAINE/EPINEPHRINE 0.5% 50 ML VIAL 30 ML INFILTRATE (12:38)
[2024-09-17] MEDS: fentaNYL CITRATE INJ (*CRX) 100 MCG/2 ML VIAL 25 MCG IV PUSH ×2 (14:16→14:23)
== END 2024-09-17 16:25 | disposition home or self-care (01) ==
PROVIDERS: PCP Internal Medicine; Visit Provider Surgery
PROC: 8E0Y4CZ Robotic Assisted Procedure of Lower Extremity, Percutaneous Endoscopic Approach (ICD-10-PCS; CPT 49650; principal; 2024-09-17 12:00)
DX: K40.90 Unilateral inguinal hernia, without obstruction or gangrene, not specified as recurrent (principal); Z87.891 Personal history of nicotine dependence
CPT/HCPCS: 49650; S2900; J0690; A9270; C1781; J1171; J1885; J2003; J2405; J2704; J3010; J7030; J7120

== ENCOUNTER 2024-12-01 09:53 | Outpatient (CLI) | payer MEDICARE, SELFPAY ==
[2024-12-01 11:20] LABS: Cholesterol 129 mg/dL (0-200); HDL Direct 30 mg/dL; Triglycerides 189 mg/dL (<150)
[2024-12-01 12:05] LABS: Hemoglobin A1C 5.9 % (<5.7)
== END 2024-12-01 09:54 | disposition home or self-care (01) ==
PROVIDERS: PCP Internal Medicine; Visit Provider Internal Medicine
DX: R73.9 Hyperglycemia, unspecified (principal); E78.5 Hyperlipidemia, unspecified
CPT/HCPCS: 36415; 80061; 83036